=== PATIENT | female | born 1990 | race Caucasian/White ===

== ENCOUNTER 2018-06-21 18:50 | Emergency (ER) | payer MEDICAID, SELFPAY ==
[2018-06-21 18:52] VITALS: BP 129/73; PULSE 123; RESP 14; TEMP 37.1; O2SAT 97; BMI 20.9
[2018-06-21 19:15] VITALS: BP 123/76; PULSE 123; RESP 18; TEMP 37.1
[2018-06-21 19:26] LABS: Bacteria 0 SEEN /hpf (None Seen); Red Blood Cells-Urine 0 SEEN /hpf (0-5)
[2018-06-21 19:29] LABS: Color, Urine Yellow (Yellow); Glucose, Dipstick Normal (Normal); Ketone-Dipstick 15 mg/dl (Negative); Leukocyte Esterase-Dipstick 25 /ul (Negative); Nitrite-Dipstick Negative (Negative); Occult Blood-Urine Negative /ul (Negative); Protein-Dipstick 30 mg/dl (Negative); Urine Bilirubin Dipstick Negative (Negative); Urine Clarity Clear (Clear); Urine Urobilinogen Normal (Normal)
[2018-06-21] MEDS: Ondansetron ODT 4 MG Tablet PO (19:30)
[2018-06-21] MEDS: Acetaminophen 500 MG Tablet 1000 MG PO (19:30)
[2018-06-21 19:31] LABS: Internal QC Validated? YES +Cl - CLEAR BKGD; Pregnancy, Urine Negative Negative
[2018-06-21 19:36] LABS: Mucous, Urine 1+ /hpf (<or=2+); Squamous Epithelial Cells - UA 0-5 SEEN /hpf (5-10); White Blood Cells 0-5 SEEN /hpf (0-5)
--- NOTE | 2018-06-21 20:08 | ED.VISSUMM ---
- ER Visit Summary Date of Service: 06/21/18 Chief Complaint: Back pain nausea vomiting diarrhea History of Present Illness: The patient is a 28 F presenting for evaluation secondary to back pain nausea vomiting diarrhea. Patient reports that today she had a relatively sudden onset of the above symptoms. She reports that she has had 8-10 episodes of nonbloody nonbilious emesis, and multiple episodes of loose watery nonbloody diarrhea. Patient states that she has some lower back pain that is a continuous aching type pain with no exacerbating relieving factors. Patient states that she feels somewhat dizzy, and feels as if she has had subjective fevers and chills from this. Last normal menstrual cycle was 3 weeks ago. Patient reports that she had prior similar episode in the past with pyelonephritis. Physical Examination: Triage vital signs notable for heart rate of 123. Well-nourished female no acute distress sitting comfortably in the bed easily and interactive and nontoxic. Head normocephalic. No conjunctival pallor or scleral icterus. Moist mucous membranes. Heart was regular rate and rhythm on my exam with a heart rate of 90 no murmurs. Lung sounds clear. Abdomen was minimally tender in the suprapubic region no guarding or rebound tenderness. No CVA tenderness to percussion. Remainder of physical otherwise unremarkable. Test Results: Urinalysis and hCG are negative Emergency Department Course and Treatment: Patient presented with nausea vomiting diarrhea and low back pain. Urinalysis was negative. Patient was given Tylenol and Zofran and repeat evaluation showed the patient to continue to be completely nontoxic and have a heart rate of 90. I do not believe that IV or further workup are indicated. She likely has a episode of viral gastroenteritis. She will be discharged with a course of Zofran. Disposition: Discharge Impression: 1. Gastroenteritis This note was generated with [employer] dictation software. It may contain incorrect words, spelling, and punctuation that were not noted in review of the chart prior to signing ED Disposition - Plan for ED Patient: Disposition: Home or Assisted Living Chief Complaint: Flank Pain Diagnosis: Gastroenteritis Instructions: ED Gastroenteritis Viral Prescriptions: Ondansetron [Zofran Odt] 4 mg PO Q8H PRN PRN #10 tab PRN Reason: Nausea Referrals: Abdoul Cabrera III, MD [Primary Care Provider] - 3-5 Days if not improving
--- NOTE | 2018-06-21 20:11 | ED.DCSUM_ITS ---
- ER Visit Summary Date of Service: 06/21/18 Chief Complaint: Back pain nausea vomiting diarrhea History of Present Illness: The patient is a 28 F presenting for evaluation secondary to back pain nausea vomiting diarrhea. Patient reports that today she had a relatively sudden onset of the above symptoms. She reports that she has had 8-10 episodes of nonbloody nonbilious emesis, and multiple episodes of loose watery nonbloody diarrhea. Patient states that she has some lower back pain that is a continuous aching type pain with no exacerbating relieving factors. Patient states that she feels somewhat dizzy, and feels as if she has had subjective fevers and chills from this. Last normal menstrual cycle was 3 weeks ago. Patient reports that she had prior similar episode in the past with pyelonephritis. Physical Examination: Triage vital signs notable for heart rate of 123. Well- nourished female no acute distress sitting comfortably in the bed easily and interactive and nontoxic. Head normocephalic. No conjunctival pallor or scleral icterus. Moist mucous membranes. Heart was regular rate and rhythm on my exam with a heart rate of 90 no murmurs. Lung sounds clear. Abdomen was minimally tender in the suprapubic region no guarding or rebound tenderness. No CVA tenderness to percussion. Remainder of physical otherwise unremarkable. Test Results: Urinalysis and hCG are negative Emergency Department Course and Treatment: Patient presented with nausea vomiting diarrhea and low back pain. Urinalysis was negative. Patient was given Tylenol and Zofran and repeat evaluation showed the patient to continue to be completely nontoxic and have a heart rate of 90. I do not believe that IV or further workup are indicated. She likely has a episode of viral gastroenteritis. She will be discharged with a course of Zofran. Disposition: Discharge Impression: 1. Gastroenteritis This note was generated with [facility] dictation software. It may contain incorrect words, spelling, and punctuation that were not noted in review of the chart prior to signing ED Disposition - Plan for ED Patient: Disposition: Home or Assisted Living Chief Complaint: Flank Pain Diagnosis: Gastroenteritis Instructions: ED Gastroenteritis Viral Prescriptions: Ondansetron [Zofran Odt] 4 mg PO Q8H PRN PRN #10 tab PRN Reason: Nausea Referrals: Abdoul Cabrera III, MD [Primary Care Provider] - 3-5 Days if not improving
[2018-06-21 20:15] VITALS: BP 120/67; PULSE 85; RESP 16; O2SAT 98
--- OUTSIDE RECORDS SUMMARY | 2018-08-08 00:11 | XMS RPT_ITS ---
:1990 Author Organization [facility] Care Team Providers Name Role Phone Abdoul Cabrera III Primary Care Unavailable Remigio Aaron Attending Unavailable PROBLEMS PROBLEMS No Problem Records FoundPROCEDURES PROCEDURES No Procedure Records FoundRESULTS RESULTS EMERGENCY DEPARTMENT Observed: 06/22/2018 Status: F Source: [place] SUMMARY 12:[address] [facility] REPOSITORY [facility] Medical Records Department [address] [place] [address] Emergency Department Summary 06/21/182007 MR#: [id number] Acct: [id number] Name: PETER OLVERA Rep #: [id number] : 1990 28 From: Remigio Aaron MD PCP: Abdoul Cabrera III, MD Status: DEP ER - ER Visit Summary Date of Service: 06/21/18 Chief Complaint: Back pain nausea vomiting diarrhea History of Present Illness: The patient is a 28 F presenting for evaluation secondary to back pain nausea vomiting diarrhea. Patient reports that today she had a relatively sudden onset of the above symptoms. She reports that she has had 8-10 episodes of nonbloody nonbilious emesis, and multiple episodes of loose watery nonbloody diarrhea. Patient states that she has some lower back pain that is a continuous aching type pain with no exacerbating relieving factors. Patient states that she feels somewhat dizzy, and feels as if she has had subjective fevers and chills from this. Last normal menstrual cycle was 3 weeks ago. Patient reports that she had prior similar episode in the past with pyelonephritis. Physical Examination: Triage vital signs notable for heart rate of 123. Well-nourished female no acute distress sitting comfortably in the bed easily and interactive and nontoxic. Head normocephalic. No conjunctival pallor or scleral icterus. Moist mucous membranes. Heart was regular rate and rhythm on my exam with a heart rate of 90 no murmurs. Lung sounds clear. Abdomen was minimally tender in the suprapubic region no guarding or rebound tenderness. No CVA tenderness to percussion. Remainder of physical otherwise unremarkable. Test Results: Urinalysis and hCG are negative Emergency Department Course and Treatment: Patient presented with nausea vomiting diarrhea and low back pain. Urinalysis was negative. Patient was given Tylenol and Zofran and repeat evaluation showed the patient to continue to be completely nontoxic and have a heart rate of 90. I do not believe that IV or further workup are indicated. She likely has a episode of viral gastroenteritis. She will be discharged with a course of Zofran. Disposition: Discharge Impression: 1. Gastroenteritis This note was generated with [employer] dictation software. It may contain incorrect words, spelling, and punctuation that were not noted in review of the chart prior to signing ED Disposition - Plan for ED Patient: Disposition: Home or Assisted Living Chief Complaint: Flank Pain Diagnosis: Gastroenteritis Instructions: ED Gastroenteritis Viral Prescriptions: Ondansetron [Zofran Odt] 4 mg PO Q8H PRN PRN #10 tab PRN Reason: Nausea Referrals: Abdoul Cabrera III, MD [Primary Care Provider] - 3-5 Days if not improving What to do if you have Problems For any increased pain, shortness of breath, bleeding, nausea or vomiting, chest pain, or any unexpected problems, contact your Primary Care Provider. Call [facility] ([phone]) or report to the closest Emergency Room. Call 911 if necessary. 06/22/18 0035 <Electronically signed by Remigio Aaron MD> Date Remigio Aaron MD Cosigner Signature (If Indicated): Date CC: Abdoul Cabrera III, MD ,URINE Collected: 06/21/2018 Status: F Source: [place] 7:[address] [facility] REPOSITORY Order Comment: Has pt arrived? Y TYPE CODE TESTS RESULT OUT OF REFERENCE UNITS RANGE LAB L400.8000 Negative Normal HCGUQUAL Negative Result Comment: Very dilute urine specimens, as indicated by a low specific gravity, may not contain business services representative levels of hCG. If is still suspected, a first morning urine specimen should be collected 48 hours later and tested. Performed By: #### L400.7600 #### [facility] [address] [place], [place], [address] URINALYSIS, COMPLETE Collected: 06/21/2018 Status: F Source: [place] 7:[address] [facility] REPOSITORY Order Comment: Has pt arrived? Y How was Urine Obtained? INSULATION PACKER TO SPECIFY TYPE CODE TESTS RESULT OUT OF RANGE REFERENCE UNITS LAB L400.3000 Yellow COLOR Normal Yellow LAB L400.3050 Clear Normal CLARITY Clear LAB L400.3200 Normal mg/dl Normal GLUCOSE, UR Normal LAB L400.3300 Negative mg/dL Normal BILIRUBIN URINE Negative LAB L400.3400 Negative mg/dl High 15 KETONE UR LAB L400.3465 1.002-1.030 Normal SP.GR. DIPSTX 1.020 LAB L400.3550 5.0 - 8.0 pH UR Normal 6.0 LAB L400.3600 Negative mg/dl High PROT 30 DIPSTX LAB L400.3700 Normal mg/dl Normal UROBILI Normal LAB L400.3750 Negative Normal NITRITE UR Negative LAB L400.3780 Negative /ul Normal OCCULT BLOOD-UR Negative LAB L400.3800 Negative /ul High LEUK 25 ESTERASE LAB L400.4050 0-5 /hpf WBC Normal 0-5 SEEN LAB L400.4100 0-5 /hpf 0 Normal RBC-UA SEEN LAB L400.4150 5-10 /hpf SQUAM Normal EPI 0-5 SEEN LAB L400.4300 None Seen /hpf 0 Normal BACTERIA SEEN LAB L400.4350 <or=2+ /hpf 1+ Normal MUCUS, URINE Performed By: #### L400.0001 #### [facility] [address] [place], [address] Observed: 06/21/2018 Status: F Source: [place] CULTURE, URINE 7:[address] [facility] REPOSITORY Has pt arrived? Y Urine Culture ORGANISM 1: Actinomyces odontolyticus [place] Count 25,000-50,000 Performed By: #### M100.0650 #### [facility] [address] [place], [address] ALLERGIES ALLERGIES DATE TYPE / CODE NAME / CODE REACTION SEVERITY SOURCE 06/21/2018 Drug No Known Unknown [facility] Allergy/4160 Allergies/F00 Hospital 24964(SNOMED [id number](RXNOR Repository CT) M) ENCOUNTERS ENCOUNTERS ADMIT/DISCHARGE ACCOUNT ADMITTING ENCOUNTER LOCATION SOURCE NUMBER CLASS 06/21/2018/ [id number] Emergency [address] ing:ED Repository PAYERS PAYERS ENCOUNTER GUARANTOR PAYER SUBSCRIBER SOURCE 06/21/2018 PETER MCMANUS Primary Insurance:[facility] PETER [place]in [id number] [facility] TOPOVSKIDOB: Critical access hospital [place]: [id number] [id number] Repository [id number]: ([phone]) Date:[id number] [phone] () [address] [place] [address]250LK: 06/21/2018 Secondary NOT GIVENUNK Moriarty Insurance:SELF PAY [facility] Number: Effective Repository Date:2018-06-21
== END 2018-06-21 20:23 | disposition home or self-care (01) ==
PROVIDERS: Emergency Provider Emergency Medicine; Family Provider Family Medicine; PCP Family Medicine
DX: K52.9 Noninfective gastroenteritis and colitis, unspecified (principal); Z87.448 Personal history of other diseases of urinary system
CPT/HCPCS: 81001; 81025; 87077; 87086; 87088; 99283

== ENCOUNTER → 2019-06-19 13:28 | Outpatient (CLI) | payer MEDICAID, SELFPAY ==
[2019-06-19 17:46] LABS: Chlamydia Trachomatis by PCR Negative (Negative); Neisserai gonorrhoeae by PCR Negative (Negative); Probe Check PASS; Sample Adequacy Control PASS; Specimen Processing Control PASS
== END ==
PROVIDERS: Family Provider Family Medicine; PCP Family Medicine; Referring Provider Obstetrics & Gynecology; Visit Provider Obstetrics & Gynecology
DX: Z11.3 Encounter for screening for infections with a predominantly sexual mode of transmission (principal)
CPT/HCPCS: 87491; 87591

== ENCOUNTER 2019-07-02 01:51 | Emergency (ER) | payer MEDICAID, SELFPAY ==
[2019-07-02 01:52] VITALS: BP 114/68; PULSE 79; RESP 18; TEMP 36.6; O2SAT 100; BMI 20.5
[2019-07-02] MEDS: 0.9% Normal Saline 1,000 ML 1000 ML IV (02:20)
[2019-07-02] MEDS: proMETHazine 25 MG/ML Syringe 6.25 MG IV (02:20)
[2019-07-02 02:21] LABS: Absolute Lymphocyte Count 0.58 X10^3/uL (0.83-4.51); Absolute Neutrophil Count 13.3 X10^3/uL (2.0-7.7); Basophil# 0.04 X10^3/uL; Basophil% 0.3 % (0-1); Eosinophil# 0.31 X10^3/uL; Hematocrit 41.8 % (37-47); Hemoglobin 14.3 g/dL (12.0-15.0); Lymphocyte # 0.58 X10^3/ul (4.0); Lymphocyte % 3.8 % (19-41); Mean Corp Hgb Conc 34.2 g/dL (32-36); Mean Corpuscular Hgb 29.9 pg (27.0-32.0); Mean Corpuscular Volume 87.4 fL (81-99); Mean Platelet Vol. 9.8 fl (6.2-12.0); Monocyte# 0.83 X10^3/uL; Monocyte% 5.5 % (0-10); NRBC Flagged by Analyzer 0 % (0-5); Neutrophil % 87.9 % (47-70); POSITIVE DIFFERENTIAL YES; Platelet Count 248 K/mm3 (150-450); RBC Distribution Width CV 11.9 % (11.6-14.6); Red Blood Count 4.78 M/mm3 (4.2-5.4); White Blood Count 15.1 K/mm3 (4.4-11.0)
[2019-07-02 02:27] LABS: Differential Indicated SCAN CRITERIA MET
[2019-07-02 02:42] LABS: Differential Comment SCANNED
[2019-07-02 02:49] LABS: Anion Gap 7 (5-15); BUN 11 mg/dL (7-18); BUN/Creat Ratio 17.3 RATIO (10-20); Calcium,Total 8.8 mg/dL (8.5-10.1); Chloride 108 mmol/L (98-107); Creatinine, Serum 0.64 mg/dL (0.55-1.02); EST Glomerular Filtration Rate 119 mL/min (>60); Est Glom Filt Rate - Afr Amer 144 mL/min (>60); Estimated Creatinine Clearance 120.48 ml/min; Glucose 99 mg/dL (74-106); Potassium 3.6 mmol/L (3.5-5.1); Sodium Level 139 mmol/L (136-145)
[2019-07-02 03:12] LABS: Bacteria 0 SEEN /hpf (None Seen); Color, Urine Yellow (Yellow); Glucose, Dipstick Normal (Normal); Leukocyte Esterase-Dipstick 25 /ul (Negative); Mucous, Urine 0 SEEN /hpf (<or=2+); Nitrite-Dipstick Negative (Negative); Occult Blood-Urine Negative /ul (Negative); Protein-Dipstick 15 mg/dl (Negative); Red Blood Cells-Urine 0 SEEN /hpf (0-5); Specific Gravity, Urine 1.025 (1.002-1.030); Urine Bilirubin Dipstick Negative (Negative); Urine Clarity Sl. Cloudy (Clear); Urine Urobilinogen Normal (Normal)
[2019-07-02 03:14] LABS: Ketone-Dipstick 150 mg/dl (Negative)
[2019-07-02 03:38] LABS: Squamous Epithelial Cells - UA 5-10 SEEN /hpf (5-10); White Blood Cells 0-5 SEEN /hpf (0-5)
--- NOTE | 2019-07-02 03:44 | ED.VISSUMM ---
- ER Visit Summary Date of Service: 07/02/19 Chief Complaint: Nausea, vomiting, diarrhea History of Present Illness: The patient is a 29 F who is 7.5 weeks . She has had nausea, vomiting, and diarrhea since earlier today. No pain. No vaginal bleeding or discharge. No urinary symptoms. No fevers. Physical Examination: Afebrile and vital signs unremarkable. Patient alert and oriented. No acute distress. Abdomen soft nontender. Skin appears normal. Test Results: White count 15.1. CHEM panel normal. Urinalysis showed ketones 150. Emergency Department Course and Treatment: Bedside ultrasound was performed by me. This showed an intrauterine with positive heart movement. Patient treated with IV fluids and Phenergan. We will check some basic labs and urinalysis. White count was elevated and ketones were elevated, likely consistent with her . She was feeling better on reevaluation. No pain. Nothing to suggest that she needs further diagnostic testing, imaging, or further emergency treatment. Patient is resting. No further vomiting or diarrhea. Will discharge home for outpatient follow-up. Return for any new or worsening issues. Patient declined prescription for nausea medicine. Treatment Plan: As above Disposition: Discharge Impression: 1. Nausea, vomiting, diarrhea 2. This note was generated with [employer] software. It may contain incorrect words, spelling, and punctuation that were not noted in review of the chart prior to signing ED Disposition - Plan for ED Patient: Referrals: Abdoul Cabrera III, MD [Primary Care Provider] -
--- NOTE | 2019-07-02 03:46 | ED.DEP ---
ED Disposition - Plan for ED Patient: Instructions: VOMITING AND DIARRHEA, Nonspecific (Adult) Referrals: Abdoul Cabrera III, MD [Primary Care Provider] -
[2019-07-02 04:05] VITALS: BP 108/66; PULSE 80; RESP 15; O2SAT 99
== END 2019-07-02 04:05 | disposition home or self-care (01) ==
PROVIDERS: Emergency Provider Emergency Medicine; Family Provider Family Medicine; PCP Family Medicine
DX: O21.9 Vomiting of pregnancy, unspecified (principal); O26.891 Other specified pregnancy related conditions, first trimester; R19.7 Diarrhea, unspecified; O99.331 Smoking (tobacco) complicating pregnancy, first trimester; Z3A.01 Less than 8 weeks gestation of pregnancy
CPT/HCPCS: 80048; 81001; 85025; 96361; 96374; 99284; J7030; A4216

== ENCOUNTER → 2019-07-10 10:52 | Outpatient (CLI) | payer MEDICAID, SELFPAY ==
[2019-07-02 01:52] VITALS: BMI 20.5
[2019-07-10 12:47] LABS: Absolute Lymphocyte Count 1.38 X10^3/uL (0.83-4.51); Absolute Neutrophil Count 4.3 X10^3/uL (2.0-7.7); Basophil# 0.03 X10^3/uL; Basophil% 0.5 % (0-1); Eosinophil# 0.28 X10^3/uL; Eosinophils% 4.4 % (0-5); Hematocrit 38.5 % (37-47); Hemoglobin 13.3 g/dL (12.0-15.0); Lymphocyte # 1.38 X10^3/ul (4.0); Lymphocyte % 21.6 % (19-41); Mean Corp Hgb Conc 34.5 g/dL (32-36); Mean Corpuscular Hgb 30.3 pg (27.0-32.0); Mean Corpuscular Volume 87.7 fL (81-99); Mean Platelet Vol. 10.1 fl (6.2-12.0); Monocyte# 0.41 X10^3/uL; Monocyte% 6.4 % (0-10); NRBC Flagged by Analyzer 0 % (0-5); Neutrophil # 4.25 X10^3/uL (2.7-7.7); Neutrophil % 66.6 % (47-70); Platelet Count 266 K/mm3 (150-450); RBC Distribution Width CV 11.9 % (11.6-14.6); RBC Distribution Width SD 38.4 fl (35.1-43.9); Red Blood Count 4.39 M/mm3 (4.2-5.4); White Blood Count 6.4 K/mm3 (4.4-11.0)
[2019-07-10 12:59] LABS: Color, Urine Yellow (Yellow); Glucose, Dipstick Normal (Normal); Ketone-Dipstick Negative (Negative); Leukocyte Esterase-Dipstick Negative /ul (Negative); Nitrite-Dipstick Negative (Negative); Occult Blood-Urine Negative /ul (Negative); Protein-Dipstick Negative (Negative); Specific Gravity, Urine 1.015 (1.002-1.030); Urine Bilirubin Dipstick Negative (Negative); Urine Clarity Clear (Clear); Urine Urobilinogen Normal (Normal)
[2019-07-10 13:11] LABS: Amphetamine Urine VISTA NEGATIVE (<1000 ng/mL); Barbiturate Urine VISTA NEGATIVE (< 200 ng/mL); Benzodiazepine Urine VISTA NEGATIVE (< 200 ng/mL); Cocaine Urine VISTA NEGATIVE (< 300 ng/mL); Ecstacy Urine VISTA NEGATIVE (< 500 ng/mL); Methadone Urine VISTA NEGATIVE (< 300 ng/mL); PCP Urine VISTA NEGATIVE (< 25 ng/mL); THC Urine VISTA NEGATIVE (< 50 ng/mL)
[2019-07-10 13:45] LABS: COTININE Drug Screen Positive (<200 ng/mL); Vista UDS pH Range 6
[2019-07-10 14:03] LABS: HIV - WCH Non-Reactive (Nonreactive); Hepatitis B Surface Antigen Non-Reactive (Nonreactive); Hepatitis C Antibody Non-Reactive (Nonreactive); Rubella IgG 78.4 IU/mL
[2019-07-13 02:24] LABS: Prenatal RPR NONREACTIVE (NONREACTIVE)
== END ==
PROVIDERS: Visit Provider Obstetrics & Gynecology
DX: Z34.81 Encounter for supervision of other normal pregnancy, first trimester (principal)
CPT/HCPCS: 36415; 80307; 81002; 84443; 85025; 86703; 86762; 86803; 87340

== ENCOUNTER → 2019-09-05 | Outpatient (CLI) | payer MEDICAID, SELFPAY ==
[2019-09-11 18:07] LABS: CF, Screen Comment: (.)
== END | disposition home or self-care (01) ==
LOC: WOBLAB 11:08
PROVIDERS: Visit Provider Obstetrics & Gynecology
DX: Z34.82 Encounter for supervision of other normal pregnancy, second trimester (principal); Z83.49 Family history of other endocrine, nutritional and metabolic diseases
CPT/HCPCS: 36415; 81220

== ENCOUNTER → 2019-11-23 09:03 | Outpatient (CLI) | payer MEDICAID, SELFPAY ==
[2019-11-23 09:28] LABS: Hematocrit 35.3 % (37-47); Hemoglobin 11.7 g/dL (12.0-15.0); Mean Corp Hgb Conc 33.1 g/dL (32-36); Mean Corpuscular Hgb 29.7 pg (27.0-32.0); Mean Corpuscular Volume 89.6 fL (81-99); Mean Platelet Vol. 9.6 fl (6.2-12.0); Platelet Count 192 K/mm3 (150-450); RBC Distribution Width CV 12.7 % (11.6-14.6); RBC Distribution Width SD 41.4 fl (35.1-43.9); Red Blood Count 3.94 M/mm3 (4.2-5.4)
[2019-11-23 09:53] LABS: Glucose Challenge Gest 1H 50g 123 mg/dL (70-140)
== END ==
PROVIDERS: Referring Provider Obstetrics & Gynecology; Visit Provider Obstetrics & Gynecology
DX: Z34.83 Encounter for supervision of other normal pregnancy, third trimester (principal)
CPT/HCPCS: 36415; 82950; 85027

== ENCOUNTER → 2020-01-18 | Outpatient (CLI) | payer MEDICAID, SELFPAY | END | disposition home or self-care (01) | LOC: LABSPEC 10:44 | PROVIDERS: Visit Provider Obstetrics & Gynecology | DX: Z36.85 Encounter for antenatal screening for Streptococcus B (principal) | CPT/HCPCS: 87081 ==

== ENCOUNTER 2020-02-04 21:32 | Outpatient (CLI) | payer MEDICAID, SELFPAY ==
[2020-02-04 21:39] VITALS: BMI 23.6
[2020-02-04 21:48] VITALS: BP 120/75; PULSE 89; TEMP 36.9; O2SAT 97
--- NOTE | 2020-02-05 01:00 | OB.TRI.NOTE ---
- Problem List (1) 38 weeks gestation of Status: Acute (2) False labor Status: Acute History of Present Illness Date of Service: 02/04/20 Was patient seen by the physician?: No Reason For Visit: R/O LABOR Final ROSANNA: 02/15/20 Final ROSANNA Source: US <20 weeks Gestational age: 38 Weeks and 4 Days History of Present Illness: 29yo @ 38 3/7wga with hx prior section, planning TOLAC presents with c/o contractions. Allergies No Known Allergies Allergy (Verified 02/04/20 21:43) - Pertinent Past Medical History Surgical History: Past Surgical History (Last Updated 02/05/20 @ 09:[address] Rachell Young MD) Previous section 2017- breech Physical Exam Vitals: Vital Signs Temp Pulse BP Pulse Ox 98.5 F 89 120/75 97 02/04/20 21:48 02/04/20 21:48 02/04/20 21:48 02/04/20 21:48 Cervix Dilation (cm): 1 Station: -3 Effacement (%): 50 - per RN exam CMak Marte NST - FHR Rate Baby A Baseline: 120 Variability:: Moderate Accelerations:: 15 x 15 Decelerations:: None NST Reactive:: Yes FHR Category:: Category I Uterine Activity:: 2-3/10 Impression/Plan 29yo @ 38 4/7 wga, Cat I FHR with false labor -SVE unchanged x 2 -d/c home
== END 2020-02-05 00:19 | disposition home or self-care (01) ==
LOC: WPOUT 21:39 → OBT 21:39
PROVIDERS: Visit Provider Obstetrics & Gynecology
DX: O47.1 False labor at or after 37 completed weeks of gestation (principal); Z3A.38 38 weeks gestation of pregnancy
CPT/HCPCS: 59025; 59050; 99218; G0378

== ENCOUNTER 2020-02-08 12:45 | Inpatient (IN) | payer MEDICAID, SELFPAY ==
[2020-02-08] VITALS (29 sets, daily range): BP systolic 96–136; BP diastolic 54–78; PULSE 68–105; TEMP 36.1–37.3; O2SAT 98–100; BMI 23.5
--- NOTE | 2020-02-08 07:05 | OB.TRI.NOTE ---
- Problem List (1) 39 weeks gestation of Status: Acute (2) False labor Status: Acute History of Present Illness Date of Service: 02/08/20 Was patient seen by the physician?: Yes Reason For Visit: R/O Date of Service: 02/08/20 Final ROSANNA: 02/15/20 Final ROSANNA Source: US <20 weeks Gestational age: 39 Weeks and 0 Days History of Present Illness: Started having contractions last evening, came in to rule out labor. Allergies bee venom protein (honey bee) Allergy (Verified 02/08/20 04:01) Swelling - Pertinent Past Medical History Surgical History: Past Surgical History (Last Updated 02/05/20 @ 09:[address] Rachell Young MD) Previous section 2017- breech Review of Systems Constitutional: Denies: Chills, Fever, Weight Change HEENT: Denies: Head Aches, Sinus Congestion, Sinus Drainage Cardiovascular: Denies: Chest Pain, Palpitations Respiratory: Denies: Cough, Shortness of breath at rest, Sputum production Gastrointestinal: Denies: Abdominal Pain, Nausea, Vomiting Genitourinary: Denies: Dysuria Musculoskeletal: Denies: Joint Pain, Joint Tenderness Skin: Denies: Rash, Wounds Neurological: Denies: Numbness, Tingling, Focal weakness Psychiatric: Denies: Anxiety, Depression, Homicidal Ideations, Suicidal Ideations Hematologic/ Lymphatic: Denies: Easy Bruising, Easy Bleeding Physical Exam Vitals: Vital Signs Temp Pulse BP Pulse Ox 97.4 F L 88 122/75 H 98 02/08/20 03:53 02/08/20 03:53 02/08/20 03:53 02/08/20 03:53 General: Alert, Oriented x3, No apparent distress HEENT: Atraumatic, Normocephalic. Negative for: Thyromegaly, Lymphadenopathy Cardiovascular: Regular rate, Regular Rhythm Lungs: Clear to auscultation Abdomen: Bowel Sounds Present, Gravid Neurological: Deep Tendon Reflexes 2+/4 and Symmetrical, Neuro grossly intact DIRECTOR OF CARDIOLOGY SERVICE LINE: Normal external genitalia. Negative for: Vulvar lesions Estimated gestational size: Appropriate for gestational size Presentation: Cephalic Cervix Dilation (cm): 1.5 Station: -2 Effacement (%): 20 NST - FHR Rate Baby A Baseline: 130 Variability:: Moderate Accelerations:: 15 x 15 Decelerations:: None NST Reactive:: Yes FHR Category:: Category I Uterine Activity:: Q5-12m, irregular Impression/Plan A/P: at 39.0 weeks planning , here to rule out labor UC irregular Q5-12 minutes apart on arrival, spaced out over 3 hours to q10-12m NST Category I Over 3 hours SVE unchanged at 1.5/20/-2 firm, posterior Educated patient when UC are regular, consistent, every 5 minutes apart, lasting 1 minute for at least 1 hour to call or return Early labor discussed To discharge home and await active labor
[2020-02-08] MEDS: Lactated Ringers 1,000 ML 200 ML IV ×2 (14:15→19:37)
[2020-02-08 14:27] LABS: Absolute Lymphocyte Count 1.37 X10^3/uL (0.83-4.51); Absolute Neutrophil Count 9.5 X10^3/uL (2.0-7.7); Basophil# 0.03 X10^3/uL; Basophil% 0.3 % (0-1); Eosinophil# 0.18 X10^3/uL; Eosinophils% 1.5 % (0-5); Hematocrit 37.2 % (37-47); Hemoglobin 12.8 g/dL (12.0-15.0); Lymphocyte # 1.37 X10^3/ul (4.0); Lymphocyte % 11.6 % (19-41); Mean Corp Hgb Conc 34.4 g/dL (32-36); Mean Corpuscular Hgb 30.2 pg (27.0-32.0); Mean Corpuscular Volume 87.7 fL (81-99); Mean Platelet Vol. 10.2 fl (6.2-12.0); Monocyte# 0.69 X10^3/uL; Monocyte% 5.8 % (0-10); NRBC Flagged by Analyzer 0 % (0-5); Neutrophil # 9.54 X10^3/uL (2.7-7.7); Neutrophil % 80.4 % (47-70); Platelet Count 202 K/mm3 (150-450); RBC Distribution Width CV 12.9 % (11.6-14.6); RBC Distribution Width SD 41.4 fl (35.1-43.9); Red Blood Count 4.24 M/mm3 (4.2-5.4); White Blood Count 11.9 K/mm3 (4.4-11.0)
[2020-02-08] MEDS: Lactated Ringers 500 ML 999 ML IV (14:45)
--- NOTE | 2020-02-08 15:27 | HP.PCM_ITS ---
- Problem List (1) 39 weeks gestation of Status: Acute (2) False labor Status: Acute History Date of Admission: 02/08/20 - breech. 39 wks Final ROSANNA: 02/15/20 Final ROSANNA Source: US <20 weeks Gestational age: 39 Weeks and 0 Days History of this : This is a 29 year-old, G [2], P [1], at 39 weeks gestational age. Surgical History: Surgical History (Last Updated 02/05/20 @ 09:[address] Rachell Young MD) Previous section Z98.891 2017- breech Allergies bee venom protein (honey bee) Allergy (Verified 02/08/20 04:01) Swelling Home Medications: Home Medications Pnv No.95/Ferrous Fum/Folic AC [ Formula] 1 ea PO DAILY 07/02/19 Smoking Status: Heavy Smoker (>10/day) Alcohol: None Number of Fetus(es): 1 NST - FHR Rate Baby A Baseline: 130 Variability:: Moderate Accelerations:: 15 x 15 Decelerations:: None NST Reactive:: Yes FHR Category:: Category I Uterine Activity:: 1.5-4m History Past Pregnancies: PRIOR DELIVERY HISTORY DEL DATE GEST LAB WT LB WT OZ TYPE ANES LABOR TX 03 May 28 39 0 8 7 C-Sec Spinal No Labs: Mom's Labs & Results 02/08/20 02/08/20 02/08/20 14:15 14:15 14:30 WBC 11.9 H RBC 4.24 Hgb 12.8 Hct 37.2 MCV 87.7 MCH 30.2 MCHC 34.4 RDW Std Deviation 41.4 RDW Coeff of Sherrell 12.9 Plt Count 202 MPV 10.2 Immature Gran % (Auto) 0.400 Neut % (Auto) 80.4 H Lymph % (Auto) 11.6 L [place] % (Auto) 5.8 Eos % (Auto) 1.5 Baso % (Auto) 0.3 Absolute Neuts (auto) 9.5 H Absolute Lymphs (auto) 1.37 Nucleated RBC % 0 COVID-19 ([place]N) Negative Blood Type A POSITIVE Antibody Screen NEGATIVE Course Did the patient receive Yes care? Labs Blood Type: A RH: POSITIVE RPR/VDRL/Syphilis Nonreactive Rubella status Immune HbSAg Negative Date Done: 07/10/19 Chlamydia Negative Gonorrhea Negative HIV/AIDS Non-Reactive Group B Strep: Negative Current Obstetrical History Gestational Diabetes No Incompetent Cervix No Infertility No IUGR No Macrosomia No Hypertension/Pre-eclampsia No Placenta Previa/Abruption No PTL/PROM No Uterine anomaly No Oligohydramnios No Polyhydramnios No Multiple gestation No Past Medical History Asthma No Diabetes No Hypertension No Heart disease No Mitral valve prolapse No Neurologic/Seizure disorder/ No Migraines Kidney disease No Liver disease No Varicosities No Clotting disorders/Hx of DVT No Thyroid Dysfunction No Other medical diseases No Psychiatric disorders No Major trauma No Abnormal PAP smear No Sleep apnea No Mammogram in the last 2 years No Social History Marital Status: SINGLE Alleged father esther Hx Smoking Yes Smoking Status Heavy Smoker (>10/day) How long have you used na substances (years)? Expected Infant Delivery Method: Number of Visits: 12 Review of Systems Constitutional: Denies: Chills, Fever, Weight Change HEENT: Denies: Head Aches, Sinus Congestion, Sinus Drainage Cardiovascular: Denies: Chest Pain, Palpitations Respiratory: Denies: Cough, Shortness of breath at rest, Sputum production Gastrointestinal: Denies: Abdominal Pain, Nausea, Vomiting Genitourinary: Denies: Dysuria Musculoskeletal: Denies: Joint Pain, Joint Tenderness Skin: Denies: Rash, Wounds Neurological: Denies: Numbness, Tingling, Focal weakness Psychiatric: Denies: Anxiety, Depression, Homicidal Ideations, Suicidal Ideatio ns Hematologic/ Lymphatic: Denies: Easy Bruising, Easy Bleeding Physical Exam Vitals: Vital Signs Temp Pulse BP Pulse Ox 98.6 F 82 136/65 H 100 02/08/20 14:51 02/08/20 15:24 02/08/20 14:46 02/08/20 15:24 General: Alert, Oriented x3, No apparent distress HEENT: Atraumatic, Normocephalic. Negative for: Thyromegaly, Lymphadenopathy Cardiovascular: Regular rate, Regular Rhythm Lungs: Clear to auscultation Abdomen: Bowel Sounds Present, Gravid Neurological: Deep Tendon Reflexes 2+/4 and Symmetrical, Neuro grossly intact PLANNING CONSULTANT: Normal external genitalia. Negative for: Vulvar lesions Estimated gestational size: Appropriate for gestational size Presentation: Cephalic Cervix Dilation (cm): 4 Station: -2 Effacement (%): 75 Assessment/Plan All Active Problems 38 weeks gestation of (Acute) False labor (Acute) 39 weeks gestation of (Acute) A/P: This is a 29 year-old, G [2], P [1], at 39 weeks gestational age. SVE 4-5/75/-2 UC 1.5-4m NST Category I Plans epidural for pain management planned Dr. Martel updated on patients arrival To admit in active labor
[2020-02-08] MEDS: fentaNYL-bupivacaine (epidural) 100 ML BAG EPIDURAL ×2 (15:38→20:15)
--- NOTE | 2020-02-08 20:08 | PCM.PN.OB ---
Subjective: Reports no pain or pressure with epidural in. Comfortable at this time. Objective: VSS. FHR baseline 135, +accels, -decels, moderate variability. - Physical Exam Vitals/I&O's: Vital Signs Temp Pulse BP Pulse Ox 98.1 F 75 127/56 H 98 02/08/20 19:15 02/08/20 19:15 02/08/20 19:15 02/08/20 19:26 Weight: 66.134 kg Body Mass Index (BMI) 23.5 Intake and Output for Last 24 Hours 02/06/20 02/07/20 02/08/20 23:59 23:59 23:59 Intake Total 1470 / 1470 Balance 1470 / 1470 General: Alert, Oriented x3, Cooperative HEENT: Atraumatic, PERRLA, EOMI, Normocephalic Neck: Supple, No JVD, Negative Carotid Bruits Lungs: Clear to auscultation, Normal air movement Cardiovascular: Regular rate, No murmurs Abdomen: Bowel Sounds Present, Soft, Non Tender Extremities: No edema, Capillary Refill Less than 3 Seconds Skin: No rashes, No breakdown Musculoskeletal: No Tenderness to Palpation of Joints or Extremities Neurological: Cranial nerves II-XII grossly intact Psych/Mental Status: Normal Affect, Appropriate Laboratory Results 02/08/20 14:15: WBC 11.9 H, RBC 4.24, Hgb 12.8, Hct 37.2, MCV 87.7, MCH 30.2, MCHC 34.4, RDW Std Deviation 41.4, RDW Coeff of Sherrell 12.9, Plt Count 202, MPV 10.2, Immature Gran % (Auto) 0.400, Neut % (Auto) 80.4 H, Lymph % (Auto) 11.6 L, Mellette % (Auto) 5.8, Eos % (Auto) 1.5, Baso % (Auto) 0.3, Absolute Neuts (auto) 9.5 H, Absolute Lymphs (auto) 1.37, Nucleated RBC % 0 02/08/20 14:15: Blood Type A POSITIVE, Antibody Screen NEGATIVE 02/08/20 14:30: COVID-19 ([place]) Negative Current Medications Acetaminophen (Tylenol) 325 - 650 mg PO Q4H PRN PRN PRN Reason: Pain Score 1-3/10 Al Hydroxide/Mg Hydroxide (Mylanta Ii) 15 - 30 ml PO Q4H PRN PRN PRN Reason: INDIGESTION Citric Acid/Sodium Citrate (Bicitra) 30 ml PO X1 PRN PRN Reason: Section Ephedrine Sulfate () 10 mg IV Q10M PRN PRN Reason: hypotension Ephedrine Sulfate () 10 mg IM Q30M PRN PRN Reason: hypotension Fentanyl Citrate (Sublimaze (100mcg Ampule)) 25 - 50 mcg IV Q2H PRN PRN PRN Reason: Pain Score 4-10/10 Fentanyl/Bupivacaine/Sodium Chlor () 0 ml EPIDURAL UD SAMIA; Protocol Last Admin: 02/08/20 15:38 Dose: 100 ml Documented by: Lactated Ringer's () 500 mls @ 999 mls/hr IV .Q31M PRN PRN Reason: Epidural Last Infusion: 02/08/20 15:16 Dose: Infused Documented by: Lactated Ringer's () 500 mls @ 999 mls/hr IV .Q31M PRN PRN Reason: Corrective Measures Lactated Ringer's () 1,000 mls @ 50 mls/hr IV .Q20H SAMIA Last Admin: 02/08/20 19:37 Dose: 200 mls/hr Documented by: Naloxone HCl 4 mg/ Dextrose 504 mls @ 0 mls/hr IV .Q0M PRN; Protocol PRN Reason: To maintain Resp. rate >10 Nalbuphine HCl (Nubain) 5 mg IV Q3H PRN PRN PRN Reason: ITCHING Naloxone HCl (Narcan) 0.02 mg IV Q1M PRN PRN Reason: RR< 10 AND PT UNRESPONSIVE Ondansetron HCl (Zofran) 4 mg IV Q4H PRN PRN PRN Reason: NAUSEA Prochlorperazine Edisylate (Compazine Iv) 10 mg IV Q6H PRN PRN PRN Reason: NAUSEA Sodium Chloride () 10 - 40 ml IV X1 PRN PRN Reason: SALINE FLUSH Medical Necessity - Tobacco Use Smoking Status: Heavy Smoker (>10/day) Assessment/Plan All Active Problems 38 weeks gestation of (Acute) False labor (Acute) 39 weeks gestation of (Acute) A/P: SVE 5/-1 with bulging bag. AROM of large clear fluid IUPC to be placed for UC monitoring NST Category I Dr. Martel updated on POC and on unit Expect
[2020-02-09] VITALS (29 sets, daily range): BP systolic 94–145; BP diastolic 49–79; PULSE 65–90; RESP 16–18; TEMP 36.5–37.2; O2SAT 93–100
[2020-02-09] MEDS: Lactated Ringers 1,000 ML 200 ML IV ×2 (00:52→05:33)
[2020-02-09] MEDS: fentaNYL-bupivacaine (epidural) 100 ML BAG EPIDURAL ×2 (01:13→06:15)
[2020-02-09] MEDS: 0.9% Saline Lock 10 ML Syringe IV (05:35)
--- NOTE | 2020-02-09 08:17 | PCM.OPRPT ---
Vaginal Delivery Maternal Presentation: Active Labor Amniotic Membrane Rupture Type: Artificial Amniotic Fluid Description: Clear Final ROSANNA: 02/15/20 Final ROSANNA Source: US <20 weeks Gestational age: 39 Weeks and 1 Days Date of Procedure: 02/09/20 Pre-Operative Diagnosis: Intrauterine in Labor, Prior Section Post-Operative Diagnosis: Intrauterine in Labor, Prior Section Surgery/ Procedure Performed: Vacuum Assisted Vaginal Delivery Type of Anesthesia: Epidural Description of Procedure: Spontaneous vaginal after section of a viable male infant with Apgars of 8/9 from an occiput anterior presentation with clear amniotic fluid and normal three-vessel placenta. No episiotomy. First-degree midline laceration repaired in layers with 3-0 Rapide suture under epidural. Kiwi vacuum used x3 gentle pulls from low outlet to expedite delivery of the head due to deep decelerations with pushing. No pop offs. Sponges okay. Delivery physician: Luca Martel. Presentation: Vertex Placental Delivery Description: Spontaneous Placenta Disposition: [facility] Cord Vessel Description: 3 Vessels Cord Entanglement: None Estimated Blood Loss: 250 cc Infant A gender: Male (1 minute): 8 (5 minute): 9 Episiotomy Description: None Laceration: Midline, 1st degree Medications given after delivery: IV Pitocin Complications: None
[2020-02-09] MEDS: Ibuprofen 600 MG Tablet PO ×3 (08:20→21:27)
--- NOTE | 2020-02-09 08:21 | DCINST_ITS ---
<Luca Martel - Last Filed: 02/09/20 08:21> Discharge Diet: No Restrictions Discharge Activity: May Shower, May Take a Tub Bath May resume sexual activity in: 4-6 weeks Additional Activity Instructions:: Nothing in the vagina for 4-6 weeks. You may return to work/school in 6 weeks. Call your doctor if you observe: Inability to urinate, Inability to have a bowel movement, Using more than one pad per hour Additional Instructions: If you experience any of the following, contact your healthcare provider. * Bleeding that soaks a pad every hour for 2 hours * Fever 100.4 or higher * Unrelieved incision or abdominal pain * Swelling, redness, discharge or bleeding from your incision or episiotomy site * Your incision begins to separate * Problems urinating (including inability to urinate or burning while urinating). * Visual changes * Severe headache * Flu-like symptoms * Pain or redness in one of both of your breasts * Pain, warmth, tenderness or swelling in your legs, especially the calf area * Frequent nausea and vomiting * Symptoms of depression or anxiety If you experience any of the following, call 911 or go to the nearest Emergency Room. * Chest pain * Problems breathing * Seizure activity * Partial or complete paralysis of a body part, slurred speech, weakness or drooping of the face, or a sudden inability to walk or hold your balance Allergies/Adverse Reactions: Allergies bee venom protein (honey bee) Allergy (Verified 02/08/20 04:01) Swelling Medications to take at Discharge Pnv No.95/Ferrous Fum/Folic AC [ Formula] 1 ea PO DAILY 07/02/19 Please Follow Up With: Luca Martel MD - [phone] When: Call to make an appointment with your doctor in 6 weeks. Test Results: Test results from this visit will be discussed in further detail at your follow- up appointment, if applicable. <Abbie Calle - Last Filed: 02/10/20 10:55> Additional Instructions: If you experience any of the following, contact your healthcare provider. * Bleeding that soaks a pad every hour for 2 hours * Fever 100.4 or higher * Unrelieved incision or abdominal pain * Swelling, redness, discharge or bleeding from your incision or episiotomy site * Your incision begins to separate * Problems urinating (including inability to urinate or burning while urinating). * Visual changes * Severe headache * Flu-like symptoms * Pain or redness in one of both of your breasts * Pain, warmth, tenderness or swelling in your legs, especially the calf area * Frequent nausea and vomiting * Symptoms of depression or anxiety If you experience any of the following, call 911 or go to the nearest Emergency Room. * Chest pain * Problems breathing * Seizure activity * Partial or complete paralysis of a body part, slurred speech, weakness or drooping of the face, or a sudden inability to walk or hold your balance Please Follow Up With: Abbie Calle CNM When: [facility]IS FELIPE telehealth appt in 2 weeks Test Results: Test results from this visit will be discussed in further detail at your follow- up appointment, if applicable.
[2020-02-09] MEDS: Oxytocin 30 units/NS 500 ml 30 UNITS/500 ML IV.SOLN 334 UNITS IV (08:40)
[2020-02-09] MEDS: Acetaminophen 500 MG Tablet 1000 MG PO (09:34)
[2020-02-09] MEDS: Dibucaine 30 GM Tube 1 APPLIC TOPICAL (10:37)
[2020-02-10] VITALS: BP 95/53; PULSE 67; RESP 16; TEMP 36.9
[2020-02-10] MEDS: Acetaminophen 500 MG Tablet 1000 MG PO (00:39)
[2020-02-10] MEDS: Ibuprofen 600 MG Tablet PO ×2 (03:47→11:34)
[2020-02-10 03:57] VITALS: BP 101/57; PULSE 63; RESP 16; TEMP 36.7
[2020-02-10 07:55] VITALS: BP 95/47; PULSE 66; RESP 16; TEMP 36.4; O2SAT 97
--- NOTE | 2020-02-10 11:20 | PN.OBGYN_ITS ---
Subjective: Starting to feel crampy and sore. Rates pain 3/10, but Ibuprofen and Tylenol are helping. Denies heavy bleeding. is going well. Objective: VSS. Fundus is firm, midline, u/2. Mild vaginal edema with raisin size hematoma noted. Lochia rubra scant. - Physical Exam Vitals/I&O's: Vital Signs Temp Pulse Resp BP Pulse Ox 97.6 F L 66 16 95/47 L 97 02/10/20 07:55 02/10/20 07:55 02/10/20 07:55 02/10/20 07:55 02/10/20 07:55 Oxygen Delivery Method Room Air Weight: 66.134 kg Body Mass Index (BMI) 23.5 Intake and Output for Last 24 Hours 02/08/20 02/09/20 02/10/20 23:59 23:59 23:59 Intake Total 1969 / 1969 3843.34 / 3843.34 Output Total 1100 / 1100 1750 / 1750 Balance 870 / 870 2093.34 / 2093.34 General: Alert, Oriented x3, Cooperative HEENT: Atraumatic, PERRLA, EOMI, Normocephalic Neck: Supple, No JVD, Negative Carotid Bruits Lungs: Clear to auscultation, Normal air movement Cardiovascular: Regular rate, No murmurs Abdomen: Bowel Sounds Present, Soft, Non Tender Extremities: No edema, Capillary Refill Less than 3 Seconds Skin: No rashes, No breakdown, Incision - vaginal Musculoskeletal: No Tenderness to Palpation of Joints or Extremities Neurological: Cranial nerves II-XII grossly intact Psych/Mental Status: Normal Affect, Appropriate Current Medications Acetaminophen (Tylenol) 1,000 mg PO Q8H PRN PRN PRN Reason: Pain Score 1-3/10 Last Admin: 02/10/20 00:39 Dose: 1,000 mg Documented by: Bisacodyl (Dulcolax) 10 mg RECTAL UD PRN PRN Reason: If no BM Dibucaine (Dibucaine) 1 applic TOPICAL TID PRN PRN; Protocol PRN Reason: Discomfort Last Admin: 02/09/20 10:37 Dose: 1 tube Documented by: Hydrocortisone (Hytone) 1 applic TOPICAL TID PRN PRN; Protocol PRN Reason: Discomfort Ibuprofen (Motrin) 600 mg PO Q6H [facility] Last Admin: 02/10/20 03:47 Dose: 600 mg Documented by: Methylergonovine Maleate (Methergine) 0.2 mg IM X1 PRN PRN Reason: Excess bleeding/uterine atony Ondansetron HCl (Zofran) 4 mg IV Q4H PRN PRN PRN Reason: Nausea Oxycodone HCl (Oxyir) 5 - 10 mg PO Q4H PRN PRN PRN Reason: Pain Score 4-10/10 Senna/Docusate Sodium (Senokot-S, Vidhya-Colace) 1 - 2 tablet PO DAILY PRN PRN PRN Reason: Constipation Simethicone (Mylicon) 80 mg PO PCHS PRN PRN Reason: Indigestion/Stomach pain Sodium Chloride () 5 - 15 ml IV UD PRN PRN Reason: SALINE FLUSH Throat Lozenges (Dermoplast (Sp)) 1 applic TOPICAL 4X/DAY PRN PRN; Protocol PRN Reason: Pain/Inflammation Zolpidem Tartrate (Ambien (Generic)) 5 mg PO QHS PRN PRN PRN Reason: Insomnia Medical Necessity - Tobacco Use Smoking Status: Heavy Smoker (>10/day) Assessment/Plan All Active Problems 38 weeks gestation of (Acute) False labor (Acute) 39 weeks gestation of (Acute) A/P: S/P Day #1 Small vaginal hematoma is stable Pain well controlled with oral medication son Dyad stable Educated on increase vaginal edema, signs of PP depression and how to reach provider 01/02 To discharge home today with a 2 week telehealth follow up and 6 week routine PP follow up
[2020-02-10 13:50] VITALS: BP 109/75; PULSE 72; RESP 16; TEMP 36.6; O2SAT 96
== END 2020-02-10 14:00 | disposition home or self-care (01) | DRG 560 ==
PROVIDERS: Admitting Provider Obstetrics & Gynecology; Visit Provider Obstetrics & Gynecology
DX: O76 Abnormality in fetal heart rate and rhythm complicating labor and delivery (principal); O70.0 First degree perineal laceration during delivery; O34.219 Maternal care for unspecified type scar from previous cesarean delivery; Z3A.39 39 weeks gestation of pregnancy; Z37.0 Single live birth; O99.334 Smoking (tobacco) complicating childbirth; F17.200 Nicotine dependence, unspecified, uncomplicated
CPT/HCPCS: 59025; 59050; 85025; 86850; 86900; 86901; 87635; 94799; 99218; J7120; A4216; G0378; U0003

== ENCOUNTER → 2020-03-27 | Outpatient (CLI) | payer MEDICAID, SELFPAY ==
[2020-02-08 04:00] VITALS: BMI 23.5
[2020-04-01 20:56] LABS: HPV Reflexed? NOT INDICATED
== END | disposition home or self-care (01) ==
LOC: LABSPEC 10:50
PROVIDERS: Visit Provider Obstetrics & Gynecology
DX: Z12.4 Encounter for screening for malignant neoplasm of cervix (principal)
CPT/HCPCS: 88175; G0145

== ENCOUNTER 2022-06-11 14:47 | Outpatient (CLI) | payer MEDICAID, SELFPAY ==
[2022-06-11 15:17] LABS: Absolute Lymphocyte Count 1.61 X10^3/uL (0.83-4.51); Absolute Neutrophil Count 5.7 X10^3/uL (2.0-7.7); Basophil# 0.03 X10^3/uL; Basophil% 0.4 % (0-1); Eosinophil# 0.31 X10^3/uL; Eosinophils% 3.8 % (0-5); Hematocrit 37.1 % (37-47); Hemoglobin 12.8 g/dL (12.0-15.0); Lymphocyte # 1.61 X10^3/ul (0.83-4.51); Lymphocyte % 19.7 % (19-41); Mean Corp Hgb Conc 34.5 g/dL (32-36); Mean Corpuscular Hgb 29.9 pg (27.0-32.0); Mean Corpuscular Volume 86.7 fL (81-99); Mean Platelet Vol. 9.5 fl (6.2-12.0); Monocyte# 0.46 X10^3/uL; Monocyte% 5.6 % (0-10); NRBC Flagged by Analyzer 0 % (0-5); Neutrophil # 5.74 X10^3/uL (2.7-7.7); Neutrophil % 70.3 % (47-70); Platelet Count 225 K/mm3 (150-450); RBC Distribution Width CV 11.8 % (11.6-14.6); RBC Distribution Width SD 37.3 fl (35.1-43.9); Red Blood Count 4.28 M/mm3 (4.2-5.4); White Blood Count 8.2 K/mm3 (4.4-11.0)
[2022-06-11 16:14] LABS: NATERA MAILED SPECIMEN
[2022-06-11 17:16] LABS: HIV - WCH Non-Reactive (Nonreactive); Hepatitis B Surface Antigen Non-Reactive (Nonreactive); Hepatitis C Antibody Non-Reactive (Nonreactive); Rubella IgG Reactive (Nonreactive); Syphilis Antibodies Non-reactive
[2022-06-11 17:35] LABS: Amphetamine Urine VISTA NEGATIVE (<1000 ng/mL); Barbiturate Urine VISTA NEGATIVE (< 200 ng/mL); Benzodiazepine Urine VISTA NEGATIVE (< 200 ng/mL); Cocaine Urine VISTA NEGATIVE (< 300 ng/mL); Ecstacy Urine VISTA NEGATIVE (< 500 ng/mL); Methadone Urine VISTA NEGATIVE (< 300 ng/mL); PCP Urine VISTA NEGATIVE (< 25 ng/mL); THC Urine VISTA NEGATIVE (< 50 ng/mL); Vista UDS pH Range 6
== END 2022-06-11 23:59 | disposition home or self-care (01) ==
PROVIDERS: Referring Provider Obstetrics & Gynecology; Visit Provider Obstetrics & Gynecology
DX: Z31.430 Encounter of female for testing for genetic disease carrier status for procreative management (principal); Z3A.09 9 weeks gestation of pregnancy
CPT/HCPCS: 36415; 80307; 85025; 86703; 86762; 86780; 86803; 86850; 86900; 86901; 87077; 87086; 87088; 87186; 87340

== ENCOUNTER → 2022-07-28 | Outpatient (CLI) | payer MEDICAID, SELFPAY | END | disposition home or self-care (01) | PROVIDERS: Referring Provider Registered Nurse; Visit Provider Registered Nurse | DX: Z36.9 Encounter for antenatal screening, unspecified (principal); Z3A.01 Less than 8 weeks gestation of pregnancy | CPT/HCPCS: 36415 ==

== ENCOUNTER → 2022-10-02 | Outpatient (CLI) | payer MEDICAID, SELFPAY ==
[2022-10-02 15:55] LABS: Absolute Lymphocyte Count 1.46 X10^3/uL (0.83-4.51); Absolute Neutrophil Count 8.1 X10^3/uL (2.0-7.7); Basophil# 0.05 X10^3/uL; Basophil% 0.5 % (0-1); Eosinophil# 0.32 X10^3/uL; Hematocrit 35.8 % (37-47); Lymphocyte # 1.46 X10^3/ul (0.83-4.51); Lymphocyte % 13.8 % (19-41); Mean Corp Hgb Conc 33.5 g/dL (32-36); Mean Corpuscular Hgb 30.1 pg (27.0-32.0); Mean Corpuscular Volume 89.7 fL (81-99); Mean Platelet Vol. 9.7 fl (6.2-12.0); Monocyte# 0.64 X10^3/uL; NRBC Flagged by Analyzer 0 % (0-5); Neutrophil % 76.3 % (47-70); Platelet Count 217 K/mm3 (150-450); RBC Distribution Width CV 12.7 % (11.6-14.6); RBC Distribution Width SD 41.2 fl (35.1-43.9); Red Blood Count 3.99 M/mm3 (4.2-5.4); White Blood Count 10.6 K/mm3 (4.4-11.0)
[2022-10-02 16:45] LABS: Glucose Challenge Gest 1H 50g 135 mg/dL (70-140)
[2022-10-02 17:35] LABS: HIV - WCH Non-Reactive (Nonreactive); Syphilis Antibodies Non-reactive
== END | disposition home or self-care (01) ==
LOC: LAB 15:28
PROVIDERS: Referring Provider Obstetrics & Gynecology; Visit Provider Obstetrics & Gynecology
DX: O09.90 Supervision of high risk pregnancy, unspecified, unspecified trimester (principal); Z3A.22 22 weeks gestation of pregnancy; Z13.1 Encounter for screening for diabetes mellitus
CPT/HCPCS: 36415; 82950; 85025; 86703; 86780

== ENCOUNTER → 2022-12-11 | Outpatient (CLI) | payer MEDICAID, SELFPAY ==
--- NOTE | 2022-12-11 12:34 | US_ITS ---
STUDY: SECOND AND THIRD TRIMESTER OBSTETRICAL ULTRASOUND - LIMITED REASON FOR EXAM: Female, 32 years old growth LMP: Not provided PRIOR ULTRASOUND: None. TECHNIQUE: Thin TECHNICAL QUALITY: Adequate. FINDINGS: There is a single intrauterine fetus. The fetus is in a cephalic presentation. There is demonstrated cardiac activity with a heart rate of 140 bpm. There is a normal amniotic fluid volume. The largest amniotic fluid pocket measures 5.13 cm. The amniotic fluid index (RADHA) is 12.36 cm. The placenta is posterior and not low lying and extends to the left lateral region. There are Grade 0 placental changes. The cervix not measured. BIOMETRY: BPD: 8.87 cm: 35 weeks, 6 days HC: 32 cm: 36 weeks, 0 days AC: 32.74: 36 weeks, 5 days FL: 17.2 cm: 36 weeks, 6 days Age by LMP: 36 weeks 1 day age by prior US: Not applicable age by current US: 36 weeks, 0 days. ROSANNA by current US: 02/28/2023 Estimated weight: 3009 grams, +/- 451 grams, 66.9 percentile. US/OB Limited With Biometrics IMPRESSION: Viable intrauterine gestation. Mean gestational age 36 weeks 0 days based upon ultrasound parameters. Electronically Signed: Chandana Sánchez MD, CEDRICK at 14:39 EDT ,
== END | disposition home or self-care (01) ==
LOC: US 12:34
PROVIDERS: Referring Provider Advanced Practice Midwife; Visit Provider Advanced Practice Midwife
DX: Z87.59 Personal history of other complications of pregnancy, childbirth and the puerperium (principal)
CPT/HCPCS: 76816

== ENCOUNTER 2022-12-19 01:13 | Outpatient (CLI) | payer MEDICAID, SELFPAY ==
[2022-12-19 01:35] VITALS: TEMP 37
[2022-12-19 01:36] VITALS: BP 128/77; PULSE 75; O2SAT 98
[2022-12-19 01:41] VITALS: BMI 25.1
--- NOTE | 2022-12-20 05:35 | OB.TRI.HP_ITS ---
HPI - General HPI Narrative PETER OLVERA, is a 32 F who presents at 37+2 with decreased movement. no ctx/lof/vb. Maternal Data Information ROSANNA Calculator Estimated Delivery Date Method Current WG Current Estimate 01/07/23 Ultrasound #1 37w 3d Other Estimates 01/14/23 LMP (Certain) 36w 3d PFSH PFSH Medical History 38 weeks gestation of 39 weeks gestation of False labor Hx: UTI (urinary tract infection) Home Medications vit no.95-ferrous fumarate 28 mg-folic acid 800 mcg tablet 1 ea PO DAILY 07/02/19 [History Last Taken 02/08/20 0200] Allergy/AdvReac Type Severity Reaction Status Date / Time bee venom protein (honey bee) Allergy Swelling Verified 12/19/22 01:42 Family History Mother Bladder cancer, Onset Age: 54 Surgical History Previous section Social History adopted: No household members: spouse, children and other details: brother housing: house number of children: 2 current occupational status: employed current occupation: [employer] current occupational exposures/hazards: No 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) pets and animals: cat(s) and dog(s) history of recent travel: No sexually active: Yes Smoking Status: Former smoker Tobacco: How many years used: 9 second hand exposure: No alcohol intake: former details: socially maybe once a month substance use type: does not use well-balanced diet: about half the time caffeine: Yes Type: carbonated beverages Number of servings: 1 and coffee Number of servings: 1 eating out: 4 or more times/week during the past year weight has: remained stable what type of physical activity do you participate in: none mal/confucianist: None seatbelt use: always do you feel safe at home: Yes additional social history: 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 Date Name GA/Weeks Outcome Route Bth Weight Gen Labor Lgth Anesthesia Del Locatn Provider FOB 05/14/17 Andreia 39 live - full term 8#7oz Female spinal [facility] Wyatt Doshi 02/09/20 John 39 live - full term 7#5oz Male epidu ral [facility] Delonte Doshi Delivery Date: 05/14/17 Last Updated by: Wendy Montanez breech, c section, low RADHA Visit Details Expected Delivery Route/Plan patient counseled regarding risks/benefits of trial of labor versus repeat brenda arean. ACOG/uptodate education given to patient. [] % likelihood of success per calculator TOLAC consent form signed: [] Labor Preferences- CB/BF classes: [] labor support person: Mina labor intervention preferences: [] pain management options preferred: epidural cut cord/dad catch: [] : [] PP control planned: [] discussed possible routes of delivery and associated risks: [] special requests: [] Plans Covid status: discussed Flu vaccine: discussed Tdap vaccine: Rhogam: [] LARC form signed: [] Problem list reviewed and updated with the most current plan of care details and appropriate orders placed. Relevant counseling for the gestational age provided. Continue routine care and follow up unless otherwise noted in visit notes/problem list details OB Flowsheet Initial Weight: Not Recorded Date -?-?-?-?-?-?-?-?-?-?-?-?- EGA Weight BP Urine Prot -?-?-?-?-?-?-?-?-?-?-?-?- Glucose FHR FuHt Pres Dilation -?-?-?-?-?-?-?-?-?-?-?-?- Effaced St Visit Note 06/11/22 -?-?-?-?-?-?-?-?-?-?-?-?- 10w 0d 134 lb 125/79 -?-?-?-?-?-?-?-?-?-?-?-?- 170 -?-?-?-?-?-?-?-?-?-?-?-?- SM- CRL NOT cons with LMP 2.8cm ROSANNA changed 07/10/22 -?-?-?-?-?-?-?-?-?-?-?-?- 14w 1d 132 lb 125/78 Negative -?-?-?-?-?-?-?-?-?-?-?-?- Negative 156 -?-?-?-?-?-?-?-?-?-?-?-?- LC- LC-no vb/cramping. doing kylee lowe afp discussed and accepts.desires [facility] anatomy scan 08/07/22 -?-?-?-?-?-?-?-?-?-?-?-?- 18w 1d 136 lb 6 oz 124/81 Nega tive -?-?-?-?-?-?-?-?-?-?-?-?- Negative 152 -?-?-?-?-?-?-?-?-?-?-?-?- JV- no lof, vagi nal bleeding, or cramping. anatomy scan scheduled. 09/04/22 -?-?-?-?-?-?-?-?-?-?-?-?- 22w 1d 138 lb 2 oz 122/73 Nega tive -?-?-?-?-?-?-?-?-?-?-?-?- Negative 140 -?-?-?-?-?-?-?-?-?-?-?-?- SM- no vb lof go od fm no regular ctx 10/02/22 -?-?-?-?-?-?-?-?-?-?-?-?- 26w 1d 142 lb 2 oz 115/75 Nega tive -?-?-?-?-?-?-?-?-?-?-?-?- Negative 145 27 -?-?-?-?-?-?-?-?-?-?-?-?- SM- no vb lof go od fm no regular ctx cbc gct today 10/30/22 -?-?-?-?-?-?-?-?-?-?-?-?- 30w 1d 147 lb 4 oz 118/78 Nega tive -?-?-?-?-?-?-?-?-?-?-?-?- Negative 145 30 -?-?-?-?-?-?-?-?-?-?-?-?- kw-+ FM. no lof/ vb/ctx. no concerns. LARC and TOLAC form signed. declines TDAP 11/10/22 -?-?-?-?-?-?-?-?-?-?-?-?- 31w 5d 149 lb 6 oz 106/70 Nega tive -?-?-?-?-?-?-?-?-?-?-?-?- Negative 136 32 -?-?-?-?-?-?-?-?-?-?-?-?- KW- + FM. No vb/ lof/ctx./ no concerns 11/27/22 -?-?-?-?-?-?-?--?-?-?-?-?- 34w 1d 148 lb 2 oz 116/72 Nega tive -?-?-?-?-?-?-?-?-?-?-?-?- Negative 140 33 -?-?-?-?-?-?-?-?-?-?-?-?- JV- no lof, vagi nal bleeding, or dec fm. father of ruptured AAA on wednesday12/11/22 -?-?-?-?-?-?-?-?-?-?-?-?- 36w 1d 153 lb 8 oz 132/82 Nega tive -?-?-?-?-?-?-?-?-?-?-?-?- Negative 147 36 -?-?-?-?-?-?-?-?-?-?-?-?- JV- no lof, vagi nal bleeding, or dec fm. normal growth scan. normal RADHA. gbs pos. 12/16/22 -?-?-?-?-?-?-?-?-?-?-?-?- 36w 6d 153 lb 120/69 Negative -?-?-?-?-?-?-?-?-?-?-?-?- Negative 135 37 Cephalic 1 .5 -?-?-?-?-?-?-?-?-?-?-?-?- 50 -3 JV- gbs po s, no lof, vaginal bleeding, or dec fm. NST FHR Rate Baby A Baseline: 130 Variability:: Moderate Accelerations:: 15 x 15 Decelerations:: None NST Reactive:: Yes FHR Category:: Category I Uterine Activity:: irregular Assessment & Plan (1) Decreased movement: COMMENT: reactive NST on 12/19 (2) Positive GBS test: COMMENT: PCN in labor (3) Previous delivery affecting : COMMENT: for breech, successful . plan again (4) Supervision of high risk , antepartum: COMMENT: PRR , ROSANNA 01/07/23, surprise PC John Boswell [place] (5) : QUALIFIERS: Weeks of gestation: 36 weeks Qualified Code(s): Z3A.36 - 36 weeks gestation of COMMENT: NIPT low risk, carrier testing neg. afp pending. nl anatomy PLAN: Plan Patient presents for triage evaluation secondary to decreased movement FHT: Moderate variability reactive no decelerations category I tracing [place]: Contractions Assessment and plan: Reactive NST, reassuring maternal and status patient discharged to home to follow-up in office. See problem list details for additional plan information. Charges/Coding Procedures Urinary/Genital [id number]: [id number] non-stress test Interp
--- NOTE | 2022-12-20 05:35 | OB.TRI.NOTE ---
HPI - General HPI Narrative PETER OLVERA, is a 32 F who presents at 37+2 with decreased movement. no ctx/lof/vb. Maternal Data Information ROSANNA Calculator Estimated Delivery Date Method Current WG Current Estimate 01/07/23 Ultrasound #1 37w 3d Other Estimates 01/14/23 LMP (Certain) 36w 3d PFSH PFSH Medical History 38 weeks gestation of 39 weeks gestation of False labor Hx: UTI (urinary tract infection) Home Medications vit no.95-ferrous fumarate 28 mg-folic acid 800 mcg tablet 1 ea PO DAILY 07/02/19 [History Last Taken 02/08/20 0200] Allergy/AdvReac Type Severity Reaction Status Date / Time bee venom protein (honey bee) Allergy Swelling Verified 12/19/22 01:42 Family History Mother Bladder cancer, Onset Age: 54 Surgical History Previous section Social History adopted: No household members: spouse, children and other details: brother housing: house number of children: 2 current occupational status: employed current occupation: [employer] current occupational exposures/hazards: No 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) pets and animals: cat(s) and dog(s) history of recent travel: No sexually active: Yes Smoking Status: Former smoker Tobacco: How many years used: 9 second hand exposure: No alcohol intake: former details: socially maybe once a month substance use type: does not use well-balanced diet: about half the time caffeine: Yes Type: carbonated beverages Number of servings: 1 and coffee Number of servings: 1 eating out: 4 or more times/week during the past year weight has: remained stable what type of physical activity do you participate in: none mal/jainism: None seatbelt use: always do you feel safe at home: Yes additional social history: 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 Date Name GA/Weeks Outcome Route Bth Weight Gen Labor Lgth Anesthesia Del Locatn Provider FOB 05/14/17 Andreia 39 live - full term 8#7oz Female spinal [facility] Wyatt Doshi 02/09/20 John 39 live - full term 7#5oz Male epidural [facility] Delonte Doshi Delivery Date: 05/14/17 Last Updated by: Wendy Montanez breech, c section, low RADHA Visit Details Expected Delivery Route/Plan patient counseled regarding risks/benefits of trial of labor versus repeat . ACOG/uptodate education given to patient. [] % likelihood of success per calculator TOLAC consent form signed: [] Labor Preferences- CB/BF classes: [] labor support person: Mina labor intervention preferences: [] pain management options preferred: epidural cut cord/dad catch: [] : [] PP control planned: [] discussed possible routes of delivery and associated risks: [] special requests: [] Plans Covid status: discussed Flu vaccine: discussed Tdap vaccine: Rhogam: [] LARC form signed: [] Problem list reviewed and updated with the most current plan of care details and appropriate orders placed. Relevant counseling for the gestational age provided. Continue routine care and follow up unless otherwise noted in visit notes/problem list details OB Flowsheet Initial Weight: Not Recorded Date <del>?</del> EGA Weight BP Urine Prot <del>?</del> Glucose FHR FuHt Pres Dilation <del>?</del> Effaced St Visit Note 06/11/22 <del>?</del> 10w 0d 134 lb 125/79 <del>?</del> 170 <del>?</del> SM- CRL NOT cons with LMP 2.8cm ROSANNA changed 07/10/22 <del>?</del> 14w 1d 132 lb 125/78 Negative <del>?</del> Negative 156 <del>?</del> LC- LC-no vb/cramping. doing well. afp discussed and accepts.desires [facility] anatomy scan 08/07/22 <del>?</del> 18w 1d 136 lb 6 oz 124/81 Negative <del>?</del> Negative 152 <del>?</del> JV- no lof, vaginal bleeding, or cramping. anatomy scan scheduled. 09/04/22 <del>?</del> 22w 1d 138 lb 2 oz 122/73 Negative <del>?</del> Negative 140 <del>?</del> SM- no vb lof good fm no regular ctx 10/02/22 <del>?</del> 26w 1d 142 lb 2 oz 115/75 Negative <del>?</del> Negative 145 27 <del>?</del> SM- no vb lof good fm no regular ctx cbc gct today 10/30/22 <del>?</del> 30w 1d 147 lb 4 oz 118/78 Negative <del>?</del> Negative 145 30 <del>?</del> kw-+ FM. no lof/vb/ctx. no concerns. LARC and TOLAC form signed. declines TDAP 11/10/22 <del>?</del> 31w 5d 149 lb 6 oz 106/70 Negative <del>?</del> Negative 136 32 <del>?</del> KW- + FM. No vb/lof/ctx./ no concerns 11/27/22 <del>?</del> 34w 1d 148 lb 2 oz 116/72 Negative <del>?</del> Negative 140 33 <del>?</del> JV- no lof, vaginal bleeding, or dec fm. father of ruptured AAA on wednesday12/11/22 <del>?</del> 36w 1d 153 lb 8 oz 132/82 Negative <del>?</del> Negative 147 36 <del>?</del> JV- no lof, vaginal bleeding, or dec fm. normal growth scan. normal RADHA. gbs pos. 12/16/22 <del>?</del> 36w 6d 153 lb 120/69 Negative <del>?</del> Negative 135 37 Cephalic 1.5 <del>?</del> 50 -3 JV- gbs pos, no lof, vaginal bleeding, or dec fm. NST FHR Rate Baby A Baseline: 130 Variability:: Moderate Accelerations:: 15 x 15 Decelerations:: None NST Reactive:: Yes FHR Category:: Category I Uterine Activity:: irregular Assessment & Plan (1) Decreased movement: COMMENT: reactive NST on 12/19 (2) Positive GBS test: COMMENT: PCN in labor (3) Previous delivery affecting : COMMENT: for breech, successful . plan again (4) Supervision of high risk , antepartum: COMMENT: PRR , ROSANNA 01/07/23, surprise John Lobo Tico (5) : QUALIFIERS: Weeks of gestation: 36 weeks Qualified Code(s): Z3A.36 - 36 weeks gestation of COMMENT: NIPT low risk, carrier testing neg. afp pending. nl anatomy PLAN: Plan Patient presents for triage evaluation secondary to decreased movement FHT: Moderate variability reactive no decelerations category I tracing [place]: Contractions Assessment and plan: Reactive NST, reassuring maternal and status patient discharged to home to follow-up in office. See problem list details for additional plan information. Charges/Coding Procedures Urinary/Genital [id number]: [id number] non-stress test Interp
== END 2022-12-19 02:45 | disposition home or self-care (01) ==
LOC: WPOUT 01:25 → WP 01:25
PROVIDERS: Visit Provider Registered Nurse
DX: O36.8130 Decreased fetal movements, third trimester, not applicable or unspecified (principal); Z3A.37 37 weeks gestation of pregnancy; O98.813 Other maternal infectious and parasitic diseases complicating pregnancy, third trimester; B95.1 Streptococcus, group B, as the cause of diseases classified elsewhere; O34.219 Maternal care for unspecified type scar from previous cesarean delivery
CPT/HCPCS: 59025; 59050; 99221; G0378

== ENCOUNTER 2023-01-11 13:32 | Inpatient (IN) | payer MEDICAID, SELFPAY ==
[2023-01-11] VITALS (31 sets, daily range): BP systolic 110–137; BP diastolic 55–94; PULSE 69–118; TEMP 36.2–37; O2SAT 98–100; BMI 25.7
[2023-01-11] MEDS: Lactated Ringers 1,000 ML 50 ML IV (14:17)
[2023-01-11] MEDS: Oxytocin 15 Units/NS 250ml 15 UNITS/250 ML IV.SOLN 2 UNITS IV (14:20)
[2023-01-11 14:37] LABS: Absolute Lymphocyte Count 1.26 X10^3/uL (0.83-4.51); Absolute Neutrophil Count 7.6 X10^3/uL (2.0-7.7); Basophil# 0.03 X10^3/uL; Basophil% 0.3 % (0-1); Eosinophil# 0.35 X10^3/uL; Eosinophils% 3.5 % (0-5); Hematocrit 38.4 % (37-47); Hemoglobin 12.9 g/dL (12.0-15.0); Lymphocyte # 1.26 X10^3/ul (0.83-4.51); Lymphocyte % 12.7 % (19-41); Mean Corp Hgb Conc 33.6 g/dL (32-36); Mean Corpuscular Hgb 30.1 pg (27.0-32.0); Mean Corpuscular Volume 89.7 fL (81-99); Mean Platelet Vol. 10.4 fl (6.2-12.0); Monocyte# 0.66 X10^3/uL; Monocyte% 6.7 % (0-10); NRBC Flagged by Analyzer 0 % (0-5); Neutrophil # 7.55 X10^3/uL (2.7-7.7); Neutrophil % 76.3 % (47-70); Platelet Count 194 K/mm3 (150-450); RBC Distribution Width CV 12.6 % (11.6-14.6); RBC Distribution Width SD 41.5 fl (35.1-43.9); Red Blood Count 4.28 M/mm3 (4.2-5.4); White Blood Count 9.9 K/mm3 (4.4-11.0)
[2023-01-11 15:38] LABS: Syphilis Antibodies Non-reactive
[2023-01-11] MEDS: LACTATED RINGERS 500 ML 999 ML IV (17:36)
--- NOTE | 2023-01-11 17:39 | HP.PCM.OB_ITS ---
HPI - General General Date of Admission: 01/11/23 HPI Narrative PETER OLVERA, is a 32 F who presents for IOL secondary to postdate, planning TOLAC. Maternal Data Information ROSANNA Calculator Estimated Delivery Date Method Current WG Current Estimate 01/07/23 Ultrasound #1 40w 4d Other Estimates 01/14/23 LMP (Certain) 39w 4d PFSH PFSH Medical History (Updated 01/11/23 @ 17:[address] Lisa Lopez MD) 38 weeks gestation of 39 weeks gestation of False labor Hx: UTI (urinary tract infection) Oligohydramnios Home Medications vit no.95-ferrous fumarate 28 mg-folic acid 800 mcg tablet 1 ea PO DAILY 07/02/19 [History Last Taken 02/08/20 0200] Allergy/AdvReac Type Severity Reaction Status Date / Time bee venom protein (honey bee) Allergy Swelling Verified 01/11/23 15:11 Family History Mother Bladder cancer, Onset Age: 54 Surgical History Previous section Social History (Updated 01/08/23 @ 16:00 by Elenita Hector) adopted: No household members: spouse, children and other details: brother housing: house number of children: 2 current occupational status: employed 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 current occupational exposures/hazards: No 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) pets and animals: cat(s) and dog(s) history of recent travel: No sexually active: Yes Smoking Status: Former smoker Tobacco: How many years used: 9 second hand exposure: No alcohol intake: former details: socially maybe once a month substance use type: does not use well-balanced diet: about half the time caffeine: Yes Type: carbonated beverages Number of servings: 1 and coffee Number of servings: 1 eating out: 4 or more times/week during the past year weight has: remained stable what type of physical activity do you participate in: none mal/scientology: None seatbelt use: always do you feel safe at home: Yes additional social history: 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 Date Name GA/Weeks Outcome Route Bth Weight Gen Labor Lgth Anes t jose Del Locatn Provider FOB 05/14/17 Andreia 39 live - full term 8#7oz Female spinal [facility] Wyatt Doshi 02/09/20 John 39 live - full term 7#5oz Male epidu ral [facility] Delonte Doshi Delivery Date: 05/14/17 Last Updated by: Wendy Montanez breech, c section, low RADHA Visit Details Expected Delivery Route/Plan patient counseled regarding risks/benefits of trial of labor versus repeat . ACOG/uptodate education given to patient. [] % likelihood of success per calculator TOLAC consent form signed: yes Labor Preferences- CB/BF classes: enc labor support person: Mina labor intervention preferences: whatever is needed pain management options preferred: epidural cut cord/dad catch: [] : yes PP control planned: [] discussed possible routes of delivery and associated risks: [] special requests: [] Plans Covid status: discussed Flu vaccine: discussed Tdap vaccine: Rhogam: [] LARC form signed: complete Problem list reviewed and updated with the most current plan of care details and appropriate orders placed. Relevant counseling for the gestational age provided. Continue routine care and follow up unless otherwise noted in visit notes/problem list details OB Flowsheet Initial Weight: 134 lb Date -?-?-?-?-?-?-?-?-?-?-?-?- EGA Weight BP Urine Prot -?-?-?-?-?-?-?-?-?-?-?-?- Glucose FHR FuHt Pres Dilation -?-?-?-?-?-?-?-?-?-?-?-?- Effaced St Visit Note 06/11/22 -?-?-?-?-?-?-?-?-?-?-?-?- 10w 0d 134 lb (+0 oz) 125/79 -?-?-?-?-?-?-?-?-?-?-?-?- 170 -?-?-?-?--?-?-?-?-?-?-?-?- SM- CRL NOT cons with LMP 2.8cm ROSANNA changed 07/10/22 -?-?-?-?-?-?-?-?-?-?-?-?- 14w 1d 132 lb (-2 lb) 125/78 Negative -?-?-?-?-?-?-?-?-?-?-?-?- Negative 156 -?-?-?-?-?-?-?-?-?-?-?-?- LC- LC-no vb/cramping. doing wel l. afp discussed and accepts.desires [facility] anatomy scan 08/07/22 -?-?-?-?-?-?-?-?-?-?-?-?- 18w 1d 136 lb 6 oz (+2 lb 6 oz) 124/81 Negative -?-?-?-?-?-?-?-?-?-?-?-?- Negative 152 -?-?-?-?-?-?-?-?-?-?-?-?- JV- no lof, vagi nal bleeding, or cramping. anatomy scan scheduled. 09/04/22 -?-?-?-?-?-?-?-?-?-?-?-?- 22w 1d 138 lb 2 oz (+4 lb 2 oz) 122/73 Negative -?-?-?-?-?-?-?-?-?-?-?-?- Negative 140 -?-?-?-?-?-?-?-?-?-?-?-?- SM- no vb lof go od fm no regular ctx 10/02/22 -?-?-?-?-?-?-?-?-?-?-?-?- 26w 1d 142 lb 2 oz (+8 lb 2 oz) 115/75 Negative -?-?-?-?-?-?-?-?-?-?-?-?- Negative 145 27 -?-?-?-?-?-?-?-?-?-?-?-?- SM- no vb lof go od fm no regular ctx cbc gct today 10/30/22 -?-?-?-?-?-?-?-?-?-?-?-?- 30w 1d 147 lb 4 oz (+13 lb 4 oz) 118/78 Negative -?-?-?-?-?-?-?-?-?-?-?-?- Negative 145 30 -?-?-?-?-?-?-?-?-?-?-?-?- kw-+ FM. no lof/ vb/ctx. no concerns. LARC and TOLAC form signed. declines TDAP 11/10/22 -?-?-?-?-?-?-?-?-?-?-?-?- 31w 5d 149 lb 6 oz (+15 lb 6 oz) 106/70 Negative -?-?-?-?-?-?-?-?-?-?-?-?- Negative 136 32 -?-?-?-?-?-?-?-?-?-?-?-?- KW- + FM. No vb/ lof/ctx./ no concerns 11/27/22 -?-?-?-?-?-?-?-?-?-?-?-?- 34w 1d 148 lb 2 oz (+14 lb 2 oz) 116/72 Negative -?-?-?-?-?-?-?-?-?-?-?-?- Negative 140 33 -?-?-?-?-?-?-?-?-?-?-?-?- JV- no lof, vagi nal bleeding, or dec fm. father of ruptured AAA on wednesday12/11/22 -?-?-?-?-?-?-?-?-?-?-?-?- 36w 1d 153 lb 8 oz (+19 lb 8 oz) 132/82 Negative -?-?-?-?-?-?-?-?-?-?-?-?- Negative 147 36 -?-?-?-?-?-?-?-?-?-?-?-?- JV- no lof, vagi nal bleeding, or dec fm. normal growth scan. normal RADHA. gbs pos. 12/16/22 -?-?-?-?-?-?-?-?-?-?-?-?- 36w 6d 153 lb (+19 lb) 120/69 Negative -?-?-?-?-?-?-?-?-?-?-?-?- Negative 135 37 Cephalic 1 .5 -?-?-?-?-?-?-?-?-?-?-?-?- 50 -3 JV- gbs po s, no lof, vaginal bleeding, or dec fm. 12/23/22 -?-?-?-?-?-?-?-?-?-?-?-?- 37w 6d 154 lb (+20 lb) 118/75 Negative -?-?-?-?-?-?-?-?-?-?-?-?- Negative 140 38 Cephalic 1 .5 -?-?-?-?-?-?-?-?-?-?-?-?- 50 -3 Lc- no lof /vb/ctx. good fm. 12/30/22 -?-?-?-?-?-?-?-?-?-?-?-?- 38w 6d 156 lb 4 oz (+22 lb 4 oz) 122/77 Negative -?-?-?-?-?-?-?-?-?-?-?-?- Negative 131 38 Cephalic 2 -?-?-?-?-?-?-?-?-?-?-?-?- 50 -3 JV- no lof , vaginal bleeding, or dec fm. 01/06/23 -?-?-?-?-?-?-?-?-?-?-?-?- 39w 6d 159 lb 4 oz (+25 lb 4 oz) 136/84 Negative -?-?-?-?-?-?-?-?-?-?-?-?- Negative 137 38 Cephalic 2 -?-?-?-?-?-?-?-?-?-?-?-?- 50 -3 LC- no lof /vb/lof. good fm. membrane sweep today. rto in 2 days for IOL set up. 01/08/23 -?-?-?-?-?-?-?-?-?-?-?-?- 40w 1d 119/80 1+ -?-?-?-?-?-?-?-?-?-?-?-?- Negative 140 39 Cephalic 3 -?-?-?-?-?-?-?-?-?-?-?-?- 60 -3 -2 LC- no lof/vb/c tx. good fm.membrane swept today. IOL set up for wednesday with SM. 01/11/23 -?-?-?-?-?-?-?-?-?-?-?-?- 40w 4d 159 lb 4 oz (+25 lb 4 oz) 134/82 110/71 115/70 -?-?-?-?-?-?-?-?-?-?-?-?- -?-?-?-?-?-?-?-?-?-?-?-?- NST FHR Rate Baby A Baseline: 130 Variability:: Moderate Accelerations:: 15 x 15 Decelerations:: None NST Reactive:: Yes FHR Category:: Category I Uterine Activity:: irregular ROS Constitutional Constitutional: Reports systems reviewed and no addt'l complaints, except as documented Eyes Eyes: Denies change in vision ENT HEENT: Reports systems reviewed and no addt'l complaints, except as documented; Denies headache(s) Cardiovascular Cardiovascular: Reports systems reviewed and no addt'l complaints, except as documented; Denies chest pain or dyspnea Respiratory/Chest Respiratory/Chest: Reports systems reviewed and no addt'l complaints, except as documented Gastrointestinal Gastrointestinal: Reports systems reviewed and no addt'l complaints, except as documented; Denies abdominal pain Genitourinary Genitourinary: Reports systems reviewed and no addt'l complaints, except as documented, contractions Details: present (irregular) and movement Details: present; Denies dysuria or genital lesions Musculoskeletal Musculoskeletal: Reports systems reviewed and no addt'l complaints, except as documented Neurologic Neurologic: Reports systems reviewed and no addt'l complaints, except as documented Endocrine Endocrinology: Reports systems reviewed and no addt'l complaints, except as documented Vital Signs Vital Signs Vital Signs: 01/11/23 14:00 01/11/23 14:00 01/11/23 14:00 Temperature 97.2 F L Temperature Source Pulse Rate 100 Blood Pressure BP Systolic BP Diastolic Pulse Ox 98 01/11/23 14:01 01/11/23 14:01 01/11/23 14:01 Temperature Temperature Source Temporal Pulse Rate 90 Blood Pressure 134/82 H BP Systolic 134 BP Diastolic 82 Pulse Ox 01/11/23 15:24 01/11/23 15:24 01/11/23 15:24 Temperature 97.3 F L Temperature Source Pulse Rate 78 Blood Pressure 110/71 BP Systolic 110 BP Diastolic 71 Pulse Ox 01/11/23 15:24 01/11/23 15:24 01/11/23 15:24 Temperature Temperature Source Temporal Pulse Rate 76 Blood Pressure BP Systolic BP Diastolic Pulse Ox 98 01/11/23 16:32 01/11/23 16:32 01/11/23 16:32 Temperature Temperature Source Temporal Pulse Rate 69 Blood Pressure 115/70 BP Systolic 115 BP Diastolic 70 Pulse Ox 01/11/23 16:32 Temperature 97.3 F L Temperature Source Pulse Rate Blood Pressure BP Systolic BP Diastolic Pulse Ox Weight Weight: 159 lb 4 oz Body Mass Index (BMI) 25.7 Physical Exam Const alert, oriented x3, no apparent distress and healthy appearing HEENT normocephalic and moist oral mucous membranes Head and Scalp: atraumatic Neck full ROM, no lymphadenopathy, supple and thyroid normal General: trachea midline Lymph Lymphatic: no lymphadenopathy noted Chest inspection of chest normal Resp normal respiratory effort Cardio regular rate GI normal to inspection, nondistended, normoactive bowel sounds, soft to palpation and non-tender Inspection: gravid external exam normal Manual OB Exam: estimated gestational size appropriate, presentation cephalic, dilated, effaced and station Extremity normal to inspection General Extremity: Negative for edema Skin no rashes or lesions noted Neuro no focal motor deficits and deep tendon reflexes 2+ bilaterally Motor Exam: strength 5/5 throughout and clonus absent Psych mental status grossly normal Labs Labs Labs: Blood Type A POSITIVE Antibody Screen NEGATIVE Hct 38.4 % (37-47) Hgb 12.9 g/dL (12.0-15.0) Obstetrics Syphilis Total Ab Non-reactive Rubella IgG Antibody Reactive (Nonreactive) Hep Bs Antigen Non-Reactive (Nonreactive) HIV 1&2 Antibody Non-Reactive (Nonreactive) Glucose 1 Hr 50 gm 135 mg/dL (70-140) Rhogam given: Yes Miscellaneous Test Assessment & Plan (1) Hx of depression, currently : (2) : QUALIFIERS: Weeks of gestation: 40 weeks Qualified Code(s): Z3A.4 0 - 40 weeks gestation of COMMENT: NIPT low risk, carrier testing neg. afp pending. nl anatomy (3) Supervision of high risk , antepartum: COMMENT: PRR , ROSANNA 01/07/23, surprise John Lobo Tico (4) Previous delivery affecting : COMMENT: for breech, successful . plan again (5) History of oligohydramnios: COMMENT: plan 36 week growth US-66% RADHA nl (6) Positive GBS test: COMMENT: PCN in labor (7) Encounter for induction of labor: PLAN: Plan Patient presents IOL, plan management for with pitocin/AROM. Pain management: plans epidural. GBS pos plan PCN. Management of any complications: TOLAC [facility] and made any clinically relevant updates.
[2023-01-11] MEDS: fentaNYL-bupivacaine (epidural) 100 ML BAG EPIDURAL (18:27)
[2023-01-11] MEDS: Penicillin G 3,000,000 Units 50 ML 100 UNITS IV (18:27)
--- NOTE | 2023-01-11 21:46 | EX.PCM.OBRPT ---
Assessment & Plan (1) Decreased movement: COMMENT: reactive NST on 12/19 (2) Positive GBS test: COMMENT: PCN in labor (3) History of oligohydramnios: COMMENT: plan 36 week growth US-66% RADHA nl (4) Previous delivery affecting : COMMENT: for breech, successful . plan again (5) Supervision of high risk , antepartum: COMMENT: PRR , ROSANNA 01/07/23, surprise John Lobo Tico (6) : QUALIFIERS: Weeks of gestation: 40 weeks Qualified Code(s): Z3A.40 - 40 weeks gestation of COMMENT: NIPT low risk, carrier testing neg. afp pending. nl anatomy (7) Hx of depression, currently : (8) Encounter for induction of labor: (9) Vaginal after : COMMENT: 40 IOL girl Shy Maternal Data Information ROSANNA Calculator Estimated Delivery Date Method Current WG Current Estimate 01/07/23 Ultrasound #1 40w 4d Other Estimates 01/14/23 LMP (Certain) 39w 4d Vaginal Delivery Operative Information Date of Procedure: 01/11/23 Pre-Operative Diagnosis: see a/p diagnoses Post-Operative Diagnosis: same Surgery / Procedure Performed: Type of Anesthesia: Epidural Special Medications: none Estimated Blood Loss: 200 Fluids Replaced: crystalloid Findings Description of Procedure: Patient began pushing and delivered the head in the PATRICK presentation. The head was delivered atraumatically . The anterior and posterior shoulders delivered without complication followed by the rest of the infant and the was placed on the maternal abdomen. Delayed cord clamping was employed for approximately 60 seconds. Cord was clamped and cut and gentle traction was applied to the cord and the placenta delivered spontaneously immediately following it was noted to be intact with three-vessel cord. The perineum and vagina were inspected and noted to have no laceration. EBL was 200 cc. Patient and tolerated delivery well. Amniotic Fluid Description: Clear Placental Delivery Description: Spontaneous Placenta Disposition: [facility] Cord Vessel Description: 3 Vessels Cord Entanglement: None Delayed Cord Clamping: Yes Post Vaginal Delivery Medications Given After Delivery: - (Pitocin) Episiotomy Description: None Complication Complications: None Multi Select Codes Urinary/Genital Urinary/Genital CPT Codes: 79397 care after delivery(SHERICE)
--- NOTE | 2023-01-11 21:52 | DCINST_ITS ---
Discharge Instructions Diet Discharge Diet: No restrictions Activity Discharge Activity: Return to Normal Activity, May Not Drive (while taking narcotic pain medications.) and May Shower May resume sexual activity in: 4-6 weeks Dressing / Incision Call your doctor if your incision/area has: Continuous Slow Oozing, Sudden Increased Bleeding, Increased Pain/ Swelling, Increased Redness and Foul Smelling Discharge Follow Up Care Please Follow Up With: Lisa Lopez MD When: Call [phone] to make an appointment with your doctor in 6 weeks. If you had elevated blood pressure or 4th degree laceration, you will need to be seen in 2 weeks. Test Results: Test results from this visit will be discussed in further detail at your follow- up appointment, if applicable. Discharge Plan Admission Admit Date/Time: 01/11/23 13:32 Attending Provider: Maria Guadalupe Tan Primary Care Provider: Silvano Allen,Jackie Primary Discharge Orders/Prescriptions Prescriptions: No Action PNV cmb#95-ferrous fumarate-FA 1 EACH tablet 1 ea PO DAILY Referrals / Follow Up: Care Physician,Jackie Primary [Primary Care Provider] - Disposition Disposition (needs filled in before D/C Order can be placed): Home, Self Care
[2023-01-11] MEDS: Oxytocin 15 Units/NS 250ml 15 UNITS/250 ML IV.SOLN 83 UNITS IV (22:09)
[2023-01-12 00:58] VITALS: BP 121/67; PULSE 79; RESP 16; TEMP 36.4
[2023-01-12 04:07] VITALS: BP 107/58; PULSE 68; RESP 16; TEMP 36.2
--- NOTE | 2023-01-12 06:40 | PN.OBGYN_ITS ---
Subjective Subjective Patient doing well without complaints. Tolerating PO. Ambulating and voiding without difficulty. feeding well. Denies chest pain, shortness of breath, calf pain/swelling, fevers, chills, lightheadedness. Objective Data Objective Data Vital Signs: Vital Signs Temp Pulse Resp BP Pulse Ox O2 Del Method 97.1 F L 68 16 107/58 L 100 Room Air 01/12/23 04:07 01/12/23 04:07 01/12/23 04:07 01/12/23 04:07 01/11/23 21:13 01/12/23 04:07 Oxygen Delivery Method Room Air Weight: 159 lb 4 oz Body Mass Index (BMI) 25.7 Intake & Output: Intake and Output for Last 24 Hours 01/10/23 01/11/23 01/12/23 23:59 23:59 23:59 Intake Total 1905.00 / 1905.00 250 / 250 Output Total 600 / 600 200 / 200 Balance 1305.00 / 1305.00 50 / 50 Lab / Micro Data 01/11/23 14:20 Labs: Laboratory Results - last 24 hr 01/11/23 14:20: WBC 9.9, RBC 4.28, Hgb 12.9, Hct 38.4, MCV 89.7, MCH 30.1, MCHC 33.6, RDW Std Deviation 41.5, RDW Coeff of Sherrell 12.6, Plt Count 194, MPV 10.4, Immature Gran % (Auto) 0.500, Neut % (Auto) 76.3 H, Lymph % (Auto) 12.7 L, [place] % (Auto) 6.7, Eos % (Auto) 3.5, Baso % (Auto) 0.3, Absolute Neuts (auto) 7.6, Absolute Lymphs (auto) 1.26, Nucleated RBC % 0, Syphilis Total Ab Non-reactive, Blood Type A POSITIVE, Antibody Screen NEGATIVE ROS Constitutional Constitutional: Reports systems reviewed and no addt'l complaints, except as documented Cardiovascular Cardiovascular: Reports systems reviewed and no addt'l complaints, except as documented Respiratory/Chest Respiratory/Chest: Reports systems reviewed and no addt'l complaints, except as documented Gastrointestinal Gastrointestinal: Reports systems reviewed and no addt'l complaints, except as documented Physical Exam Const alert, oriented x3 and no apparent distress HEENT Head and Scalp: atraumatic Resp normal respiratory effort GI soft to palpation and non-tender Bimanual Exam - Vag & Uterus: uterus non-tender Uterus Palpation: uterus fundus firm (below Umbilicus) Assessment & Plan (1) Vaginal after : COMMENT: SM 40 IOL girl Shy PLAN: Plan s/p PPD # 1 1. routine post delivery care 2. breast feeding- support given 3. rh positive 4. rubella immune
[2023-01-12 07:54] VITALS: BP 115/81; PULSE 65; RESP 18; TEMP 36.1; O2SAT 99
[2023-01-12 11:53] VITALS: BP 114/81; PULSE 83; RESP 18; TEMP 36.3
[2023-01-12 16:18] VITALS: BP 115/75; PULSE 79; RESP 18; TEMP 36.4
[2023-01-12 20:30] VITALS: BP 127/75; PULSE 65; RESP 14; TEMP 36.8; O2SAT 96
[2023-01-13 02:25] VITALS: BP 114/71; PULSE 62; RESP 16; TEMP 36.8; O2SAT 98
[2023-01-13 07:58] VITALS: BP 121/79; PULSE 75; RESP 16; TEMP 36.4; O2SAT 97
--- NOTE | 2023-01-13 08:00 | PCM.PN.OB ---
Subjective Subjective Patient doing well without complaints. Tolerating PO. Ambulating and voiding without difficulty. Feeding well. Denies chest pain, shortness of breath, calf pain/swelling, fevers, chills, lightheadedness. Objective Data Objective Data Vital Signs: Vital Signs Temp Pulse Resp BP Pulse Ox O2 Del Method 97.5 F L 75 16 121/79 H 97 Room Air 01/13/23 07:58 01/13/23 07:58 01/13/23 07:58 01/13/23 07:58 01/13/23 07:58 01/13/23 07:58 Oxygen Delivery Method Room Air Weight: 159 lb 4 oz Body Mass Index (BMI) 25.7 Intake & Output: Intake and Output for Last 24 Hours 01/11/23 01/12/23 01/13/23 23:59 23:59 23:59 Intake Total 1905.00 / 1905.00 250 / 250 Output Total 600 / 600 200 / 200 Balance 1305.00 / 1305.00 50 / 50 Lab / Micro Data 01/11/23 14:20 Physical Exam Const alert and oriented x3 HEENT normocephalic Eyes PERRL Neck full ROM Resp normal respiratory effort GI soft to palpation GI Narrative: FF below U Assessment & Plan (1) Vaginal after : COMMENT: 40 IOL girl Shy PLAN: Plan s/p PPD # 2 1. routine post delivery care 2. breast feeding- support given 3. rh positive 4. rubella immune 5. home today
--- NOTE | 2023-01-13 11:27 | CASEMGMT ---
Social Work Assessment Labor and Delivery Unit Patient Address:[address] [place] [address] nathan Pacheco [id number] Phone number: [phone] Date of Referral: 01/11/23 Time of Referral:? 1509 Referred By: Maria Guadalupe Tan Date of Intervention: ??01/13/23 Time of Intervention:? 1050 Reason for Referral:? Father history of alcoholism History obtained from: medical records and mother of baby (MASSIEL- Bill) and father of baby (ROSAURA- Mina Alexandra)??? Household composition: Currently residing at home is ROSAURA RANKIN and their two other children, Andreia (5 y/o) and John (3 y/o) Patient's parent/guardian status:? Parents report they met 7 years ago while working together. Medical History: ?MASSIEL is . Her first was a delivery. Second was successful . This was uncomplicated, and a second successful . MASSIEL states that this delivery was unlike her other two, it was very quick and smooth sailing. MASSIEL received routine care with [facility]. Baby, Viviane Saldivar, was born on 01/11/23 weighing 8 lb 11oz. Apgars were 8 and 9. Baby is doing well with , MASSIEL states that she has a pump for home. Educational Status: Both parents graduated from high school. MASSIEL has some college education but has not graduated. ROSAURA has an associates degree in [employer], he went to the [employer]. 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 ROSAURA is able to take 6 weeks of paid time off. MASSIEL is able to take off as much time as she needs, but it is not paid. Supplies:?Parents report they have everything they need for baby including a safe sleep space, car seat, clothes, diapers and wipes. Childcare/Caregiver(s):? Parents state they have a friend who has two children that will come over and watch the kids whenever they need someone. Transportation:?? No transportation barriers at this time, both parents have dependable means of transportation. Programs/Agencies Involved: ???MASSIEL states that she is connected to insurance through S and WIC. Children Services/Legal Issues:???None reported, no issues or concerns at this time to warrant referral. Behavioral Health Issues: ?? Mental Health History:??MASSIEL reports that she believes she experienced depression following the of her first child. MOB states that she did not seek counseling and was not prescribed medications during that time. Sw completed PHQ-9 with MASSIEL, her score was a 4. Sw discussed current symptoms of depression/ anxiety and provided support. MOB states that her father recently following an abdominal embolism. MOB states that she has been struggling with processing that loss while . MOB states that her father did not have an executor, living will or power of business attorney and because she is Next of Kin she has had the responsibility put on her shoulders. Sw processed this grief with MASSIEL. MASSIEL states that she is fully anticipating to experience some symptoms given just having a baby and losing her dad. Sw provided MOB with list of local counseling resources and encouraged MOB to get connected to mental health supports during this time. MOB appeared to be receptive to this recommendation. Substance Use History:?MASSIEL denies substance use during aside from cigarettes. Family History:?MASSIEL reports that her father did have a history of alcohlism. Drug Screens: Drug screen was negative. Family/Social Stressors:? Current stressors at this time are the recent loss of MASSIEL's father and FOMyles's grandmother. Support Systems: Parents report they have several friends who are supportive. MOB states that they have some family members who are supportive but not always dependable. Depression/Shaken Baby/Safe Sleeping: Education on signs and symptoms of baby blues and post depression provided to parents. Parents educated to never shake a baby and ABCs of safe sleep. Parents expressed understanding. ASSESSMENT:? Parents talkative and engaged during psychosocial assessment. FOB respectably stepped out for MOB to complete PHQ-9 questionnaire. MOB with mental health history positive for depression. Education, resources and support provided to help MOB and FOB navigate what to expect once home with new baby. PLAN:? No further sw needs or concerns at this time. ?No other services requested or indicated. Lowell Figueroa POST ACUTE CARE NURSE, THERAPIST SPEECH
== END 2023-01-13 12:10 | disposition home or self-care (01) | DRG 560 ==
PROVIDERS: Admitting Provider Advanced Practice Midwife; Visit Provider Advanced Practice Midwife
DX: O41.03X0 Oligohydramnios, third trimester, not applicable or unspecified (principal); Z37.0 Single live birth; O34.219 Maternal care for unspecified type scar from previous cesarean delivery; Z87.891 Personal history of nicotine dependence; Z3A.40 40 weeks gestation of pregnancy; O36.8130 Decreased fetal movements, third trimester, not applicable or unspecified; O99.824 Streptococcus B carrier state complicating childbirth; O48.0 Post-term pregnancy; Z86.59 Personal history of other mental and behavioral disorders; Z87.59 Personal history of other complications of pregnancy, childbirth and the puerperium
CPT/HCPCS: 59025; 59050; 85025; 86780; 86850; 86900; 86901; 99221; J7120; G0378

== ENCOUNTER → 2023-02-26 | Outpatient (CLI) | payer MEDICAID, SELFPAY ==
[2023-03-03 13:08] LABS: HPV APTIMA, High Risk Negative (Negative)
== END | disposition home or self-care (01) ==
LOC: LABSPEC 11:40
PROVIDERS: Referring Provider Obstetrics & Gynecology; Visit Provider Obstetrics & Gynecology
DX: Z12.4 Encounter for screening for malignant neoplasm of cervix (principal)
CPT/HCPCS: 87624; 88175; G0145

== ENCOUNTER 2023-04-27 12:06 | Day surgery (SDC) | payer MEDICAID, SELFPAY ==
--- NOTE | 2023-04-26 13:46 | PCM.HP.BLA ---
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 Required: No Is patient in pain?: No Allergies bee venom protein (honey bee) Allergy (Verified 04/20/23 16:31) Swelling Medications vit no.95-ferrous fumarate 28 mg-folic acid 800 mcg tablet 1 ea PO DAILY 07/02/19 [History Confirmed 04/12/23] acetaminophen 325 mg capsule 325 mg PO Q6H PRN pain 04/12/23 [History Confirmed 04/12/23] ibuprofen 200 mg capsule 200 mg PO Q6H PRN pain 04/12/23 [History Confirmed 04/12/23] loratadine 10 mg tablet (Claritin) 10 mg PO DAILY PRN allergy symptoms 04/12/23 [History Confirmed 04/12/23] Is last menstrual period known: No Post menopausal: No Patient : No : No PFSH Medical History Former smoker Hx: UTI (urinary tract infection) Lactating mother Oligohydramnios PONV (postoperative nausea and vomiting) Surgical History History of wisdom tooth extraction Previous section Family History Mother Bladder cancer, Onset Age: 54 Social History adopted: No household members: spouse, children and other details: brother housing: house number of children: 2 current occupational status: employed 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 current occupational exposures/hazards: No 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) pets and animals: cat(s) and dog(s) history of recent travel: No sexually active: Yes Smoking Status: Former smoker Tobacco: How many years used: 9 second hand exposure: No alcohol intake: former details: socially maybe once a month substance use type: does not use well-balanced diet: about half the time caffeine: Yes Type: carbonated beverages Number of servings: 1 and coffee Number of servings: 1 eating out: 4 or more times/week during the past year weight has: remained stable what type of physical activity do you participate in: none mal/moravian: None seatbelt use: always do you feel safe at home: Yes additional social history: 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 Female Reproductive History Menopausal Symptoms: No night sweats History 3 Elective abortions Hx Para 3 Spontaneous abortions Hx # Term Pregnancies Ectopic pregnancies Hx # Pregnancies Multiple births # of living children 3 Past Pregnancies Del. Date Name GA/Weeks Outcome Route Bth Weight Infant Gen Labor Lgth Anesthesia Del Locatn Provider FOB 05/14/17 Andreia 39 live - full term 8#7oz Female spinal [facility] Wyatt [place] 02/09/20 Lopez 39 live - full term 7#5oz Male epidural [facility] Delonte [place] 01/11/23 Shy 40 live - full term 8lb 11oz epidural [facility] Marcanthony Delivery Date: 05/14/17 Last Updated by: Wendy Montanez breech, c section, low RADHA ROS Const Constitutional: Denies fatigue, night sweats, weight gain or weight loss ENT ENT: Reports system reviewed and no additional complaints, except as documented Cardio Card: Denies chest pain Resp Resp: Denies cough or dyspnea GI GI: Reports as per HPI; Denies abdominal pain, constipation, nausea or vomiting : Denies nipple discharge, urinary frequency, urinary incontinence, urinary hesitancy, urinary urgency, vaginal discharge, vaginal dryness, vaginal odor or vaginal pruritus Musc Musc: Denies arthralgias, back pain or muscle weakness Skin Skin/Breast: Denies alopecia, change in hair, dry skin, breast mass, breast pain, breast skin changes or nipple discharge Neuro Neuro: Reports system reviewed and no additional complaints, except as documented Psych Psych: Reports system reviewed and no additional complaints, except as documented Endo Endo: Denies cold intolerance, excessive sweating, heat intolerance or polydipsia Dudley/Lymph Hematologic/Lymphatic: Denies easy bleeding, Denies easy bruising and Denies lymphadenopathy Exam Const General: cooperative, healthy appearing, comfortable and no acute distress Orientation: alert [facility] Head: normal to inspection and normocephalic Ears: hearing grossly normal bilaterally and external ears normal Nose: external nose normal and nares normal Face and sinus: normal facial exam Neck Neck: normal visual inspection and no lymphadenopathy Thyroid: thyroid normal Chest Chest palpation & inspection: normal inspection of the chest Resp Effort & Inspection: normal respiratory effort Auscultation: clear to auscultation bilaterally Cardio Rate: regular rate Rhythm: regular rhythm Heart Sounds: S1 normal and S2 normal GI Inspection: normal to inspection and non-distended Palpation: soft and no hepatosplenomegaly Other: umbilicus with small hernia Musc Other: gross motor intact no deficits, full bilateral strength Skin General: no rashes or lesions noted Neuro General: patient alert, patient awake, moves all extremities and no focal motor deficits Motor: muscle tone normal throughout Extrem General: normal to inspection and no pedal edema Psych Appearance: grossly normal Mental Status: mental status grossly normal Affect: normal affect Speech and Movement: speech and movement normal Coding Level of Care Code No Charge Diagnoses Sterilization Z30.2 Assessment and Plan Assessment and Plan (1) Sterilization: Status: Acute Comment: plan laparoscopic bilateral salpingectomy Plan After discussing the patient's diagnosis and treatment plan options, patient wishes to proceed with surgical management. I have discussed with the patient the risks, benefits, and alternatives of the procedure which include but are not limited to risks of anesthesia, bleeding, infection, possible damage to bowel, bladder, or surrounding vasculature which could lead to additional surgery to evaluate any complications. Patient agrees to procedure and wishes to proceed. ACOG/uptodate references given for additional information regarding procedure.
--- NOTE | 2023-04-27 | FALS_PTH ---
PATIENT: PETER [place]VERA [place] [facility] [id number] AGE/SX: 33/F ROOM: RE04/27/[address]: Dr. Lisa Lopez MD : 1990 BED: DIS: 04/27/2023 SPEC #: [id number] RECD: 04/27/23 18:13 STATUS: SAVANA REQ #: [id number] NANI: 04/27/23 00:[address]: Lisa Lopez DEPT: SURGICAL PATHOLOGY RECD BY: Nader Sanchez ENTERED: 04/28/23 09:21 SP TYPE: FALL TUBES OTHR DR: No Primary Care Phys Tissues: Fallopian tube Procedures: Surgery Specimen Level II HEADER OPERATION: Laparoscopic salpingectomy PRE-OP DIAGNOSIS: Sterilization TISSUE SUBMITTED: Bilateral fallopian tubes MICROSCOPIC DIAGNOSIS Right and left fallopian tubes, bilateral salpingectomies: Complete cross-sections of fallopian tubes with no pathologic change. AM:demetrio 04/29/2023 MICROSCOPIC DESCRIPTION Slides are reviewed. GROSS DESCRIPTION Received in fixative is one container labeled with the patient's name and designated bilateral fallopian tubes. The specimen consists of bilateral fallopian tubes including fimbrial ends measuring 6.0 cm in length and 0.4 cm in diameter and 6.0 cm in length and 0.5 cm in diameter. The fallopian tubes are not identified as right or left. Sections reveal unremarkable cut surfaces. Warehouse Worker 2Nd Shift sections are submitted in two cassettes with each cassette containing one fallopian tube. / LAYNE:demetrio 04/28/2023 TC:4 CPT: 79246 x2
[2023-04-27 12:39] LABS: Internal QC Validated? YES +Cl - CLEAR BKGD; Pregnancy, Urine Negative Negative; Record Kit Lot#,Urine Preg HCG0000667200
[2023-04-27 12:41] VITALS: BP 112/79; PULSE 68; RESP 16; TEMP 36.4; O2SAT 100; BMI 22.2
[2023-04-27] MEDS: Lactated Ringers 1,000 ML 15 ML IV (12:45)
[2023-04-27 12:51] LABS: Hematocrit 36.6 % (37-47); Hemoglobin 12.2 g/dL (12.0-15.0); Mean Corp Hgb Conc 33.3 g/dL (32-36); Mean Corpuscular Hgb 28.6 pg (27.0-32.0); Mean Corpuscular Volume 85.7 fL (81-99); Mean Platelet Vol. 9.4 fl (6.2-12.0); Platelet Count 271 K/mm3 (150-450); RBC Distribution Width CV 12.5 % (11.6-14.6); RBC Distribution Width SD 38.7 fl (35.1-43.9); Red Blood Count 4.27 M/mm3 (4.2-5.4); White Blood Count 4.9 K/mm3 (4.4-11.0)
--- NOTE | 2023-04-27 12:55 | PCM.OPRPT ---
Problems Associated Problem List Diagnoses (1) Sterilization: Report of Operation Date of Procedure: 04/27/23 Pre-Operative Diagnosis: see problem list Post-Operative Diagnosis: same Surgery/Procedure Performed:: laparoscopic bilateral salpingectomy Description of Surgical Findings:: nl uterus tubes ovaries Surgeon: Lisa Lopez Type of Anesthesia: General and Local Specimen's removed: tubes Drains: none Estimated Blood Loss (mL): 50 Fluids Replaced: crystalloid Description of Procedure: Patient was taken in the operating room and was placed under general anesthesia was prepped and draped in normal sterile fashion in the dorsal lithotomy position. Bladder was drained of clear urine and SCDs were on preoperatively. Uterus was sounded and a uterine manipulator was placed after dilating. Attention was then paid to the abdominal portion of the procedure and the umbilicus was elevated with towel clamps and injected with Marcaine and after a 5 mm incision was made and the Veress needle was entered into the abdomen confirmed to be intra-abdominal with a low opening pressure of less than 5 mmHg. Abdomen was insufflated with CO2 gas and a 5 mm optical trocar was placed under direct visualization. A 5 mm port suprapubically was placed under direct visualization. Uterus was well visualized and bilateral fallopian tubes identified and bilateral tubes were elevated and transecting across the mesosalpinx and the attachment to the uterine corpus bilaterally the tubes were removed without complication. Excellent hemostasis was noted. Fallopian tubes were removed through the lower port site without complication. Liver and upper abdomen were visualized notably within normal limits and no other gross abnormalities were seen in the abdomen. All instruments removed from the abdomen after gas was desufflated. Port sites were closed with 3-0 Monocryl Steri's and op sites were applied. All instruments removed from the vagina and patient was awoken and taken recovery in stable condition. Grafts/Implants Used: none Complications none Admit VTE Documentation VTE Present on Admission: No VTE Mechan Device Prophylaxis: SCD's Multi Select Codes Urinary/Genital Urinary/Genital CPT Codes: 80142 Laproscopic BS/O
--- NOTE | 2023-04-27 12:55 | PCM.DC ---
Discharge Instructions Diet Discharge Diet: No restrictions Activity Discharge Activity: Return to Normal Activity, May Not Drive (for 2 weeks or while taking narcotic pain meds.), May Shower and May Take a Tub Bath (in 7 days) May resume sexual activity in: 1 week Weight Bearing Status: Full weight bearing Dressing / Incision Call your doctor if your incision/area has: Continuous Slow Oozing, Sudden Increased Bleeding, Increased Pain/ Swelling, Increased Redness and Foul Smelling Discharge Call your doctor if you observe: Fever of 101 or Higher, Using more than 1 pad per hour, Shortness of breath, Chest pain and Uncontrolled pain Suture Line Care: Avoid Pulling/Pushing and Avoid Pinching/Bending Remove Dressing in: 1 week (if present) Cleanse incision/area with: Soap & Water and Keep Dressing Clean & Dry Follow Up Care When: Call to make an appointment with your doctor for a fu/incision check in 1-2 weeks. Test Results: Test results from this visit will be discussed in further detail at your follow-up appointment, if applicable. Discharge Plan Admission Attending Provider: Lisa Lopez Primary Care Provider: Care Physician,Jackie Primary Discharge Orders/Prescriptions Prescriptions: New oxycodone-acetaminophen [Percocet] 5-325 mg tablet 1 tab PO Q6H PRN (Reason: pain) 7 Days Qty: 10 0RF naproxen [naproxen] 500 mg tablet 500 mg PO BID PRN PRN (Reason: Pain) Qty: 30 1RF No Action PNV cmb#95-ferrous fumarate-FA 1 EACH tablet 1 ea PO DAILY acetaminophen 325 mg capsule 325 mg PO Q6H PRN (Reason: pain) ibuprofen 200 mg capsule 200 mg PO Q6H PRN (Reason: pain) loratadine [Claritin] 10 mg tablet 10 mg PO DAILY PRN (Reason: allergy symptoms) Referrals / Follow Up: Care Physician,No Primary [Primary Care Provider] - Disposition Disposition (needs filled in before D/C Order can be placed): Home, Self Care
[2023-04-27] MEDS: Bupivacaine 0.25% 30 ML Vial (13:57)
[2023-04-27 14:25] VITALS: BP 108/57; BP 112/79; PULSE 73; RESP 16; TEMP 36.4; O2SAT 97
[2023-04-27 14:30] VITALS: BP 112/79; BP 97/65; PULSE 66; RESP 18; O2SAT 98
[2023-04-27 14:45] VITALS: BP 112/79; BP 114/68; PULSE 47; RESP 18; O2SAT 100
[2023-04-27 14:50] VITALS: BP 112/79; BP 128/60; PULSE 52; RESP 18; TEMP 36.3; O2SAT 100
[2023-04-27] MEDS: Ketorolac 30 MG/ML Syringe IV (15:07)
[2023-04-27 15:45] VITALS: BP 112/79; BP 122/74; PULSE 66; RESP 16; TEMP 36.1; O2SAT 100
== END 2023-04-27 16:05 | disposition home or self-care (01) ==
LOC: SDC 12:07 → AC 12:08
PROVIDERS: Referring Provider Obstetrics & Gynecology; Visit Provider Obstetrics & Gynecology
PROC: (CPT 58661; principal; 2023-04-27 13:35)
DX: Z30.2 Encounter for sterilization (principal); Z87.891 Personal history of nicotine dependence; Z87.440 Personal history of urinary (tract) infections
CPT/HCPCS: 58661; 00840; 81025; 85027; 86850; 86900; 86901; 88302; J7120; J2405

== ENCOUNTER → 2024-10-18 | Outpatient (CLI) | payer MEDICAID, SELFPAY ==
[2024-10-18 11:44] LABS: Absolute Lymphocyte Count 1.47 X10^3/uL (0.83-4.51); Absolute Neutrophil Count 4.1 X10^3/uL (2.0-7.7); Basophil# 0.05 X10^3/uL; Basophil% 0.8 % (0-1); Eosinophil# 0.44 X10^3/uL; Eosinophils% 6.6 % (0-5); Hematocrit 38.4 % (37-47); Hemoglobin 12.7 g/dL (12.0-15.0); Lymphocyte # 1.47 X10^3/ul (0.83-4.51); Lymphocyte % 22.2 % (19-41); Mean Corp Hgb Conc 33.1 g/dL (32-36); Mean Corpuscular Hgb 28.7 pg (27.0-32.0); Mean Corpuscular Volume 86.7 fL (81-99); Mean Platelet Vol. 9.8 fl (6.2-12.0); Monocyte# 0.48 X10^3/uL; Monocyte% 7.2 % (0-10); NRBC Flagged by Analyzer 0 % (0-5); Neutrophil # 4.13 X10^3/uL (2.7-7.7); Neutrophil % 62.3 % (47-70); Platelet Count 240 K/mm3 (150-450); RBC Distribution Width CV 13.2 % (11.6-14.6); RBC Distribution Width SD 41.7 fl (35.1-43.9); Red Blood Count 4.43 M/mm3 (4.2-5.4); White Blood Count 6.6 K/mm3 (4.4-11.0)
[2024-10-18 15:26] LABS: ALB/GLOB Ratio 1.6 RATIO (0.9-2.4); AST(SGOT) 20 U/L (<=31); Alanine Aminotransfer ALT/SGPT 13 U/L (<=34); Albumin, Serum 4.4 g/dL (3.5-5.0); Alkaline Phosphatase 45 U/L (35-104); Anion Gap 11 (5-15); BUN 6 mg/dL (4-19); BUN/Creat Ratio 9.6 RATIO (10-20); Calcium,Total 9.2 mg/dL (7.6-11.0); Carbon Dioxide 23.1 mmol/L (21.0-32.0); Chloride 104 mmol/L (98-108); Cholesterol 169 mg/dL (<=200); Creatinine, Serum 0.58 mg/dL (0.70-1.20); EST Glomerular Filtration Rate 123 (>60); Globulin 2.7 g/dL (2.2-4.2); Glucose 82 mg/dL (70-99); High Density Lipoprotein 60 mg/dL; Low Density Lipoprotein Calc. 95 mg/dL; Potassium 4.6 mmol/L (3.3-5.1); Sodium Level 138 mmol/L (133-145); Total Bilirubin 0.34 mg/dL (0.00-1.30); Triglycerides 72 mg/dL; Very Low Density Lipoprotein 14 mg/dL (5-40); cholesterol:hdl ratio screen 2.83
[2024-10-18 19:10] LABS: Ferritin 19 ng/mL (22-378); Vitamin D,25 Hydroxy 32.8 ng/mL (30-100)
[2024-10-18 19:22] LABS: Iron 59 ug/dL (50-170)
== END | disposition home or self-care (01) ==
LOC: VSLAB 09:55
PROVIDERS: Visit Provider Nurse Practitioner
DX: F41.1 Generalized anxiety disorder (principal)
CPT/HCPCS: 36415; 80053; 80061; 82306; 82728; 83540; 84443; 85025